=== PATIENT | male | born 1970 | race Caucasian/White ===

== ENCOUNTER 2016-12-06 06:20 | Inpatient (IN) | payer OTHER ==
[2016-12-06] MEDS: HYDROmorphone 1 mg/mL 1mL Syr IVP PRN ×3 (08:07→20:53)
[2016-12-06] MEDS: Sodium Chloride 0.9% 1,000 ML IV SCH ×2 (08:10→23:36)
[2016-12-06 08:21] LABS: HEMATOCRIT 34.4 % (39.0-49.0); HEMOGLOBIN 11.7 gm/dL (13.2-17.3); MEAN CORPUSCULAR HEMOGLOBIN 27.9 pg (26.0-30.0); MEAN PLATELET VOLUME 7.2 fl; PLATELET COUNT 486 Th/cmm (150-400); RED BLOOD COUNT 4.19 Mil/cmm (4.30-5.70); RED CELL DISTRIBUTION WIDTH 13.2 % (11.5-20.0)
[2016-12-06 08:28] LABS: WHITE BLOOD COUNT 23.5 Th/cmm (4.8-10.8)
[2016-12-06 08:44] LABS: ALB/GLOB RATIO 0.7 (1.0-1.8); ALKALINE PHOSPHATASE 68 U/L (34-104); ANION GAP 9.4 (7.0-16.0); BILIRUBIN,TOTAL 0.6 mg/dL (0.3-1.0); BUN - UREA NITROGEN 8 mg/dL (7-25); CALCIUM SERUM 8.3 mg/dL (8.6-10.3); CHLORIDE 99 mEq/L (98-107); CREATININE - SERUM 0.4 mg/dL (0.7-1.3); GLUCOSE 121 mg/dL (70-105); POTASSIUM SERUM 3.4 mEq/L (3.5-5.1); SGOT 21 U/L (13-39); SGPT/ALT 18 U/L (7-52); SODIUM SERUM 134 mEq/L (136-145)
[2016-12-06 08:45] LABS: BAND NEUTROPHILE 7 % (0-10); NEUTROPHILS 75 % (40-80); TOTAL CELLS COUNTED 100
[2016-12-06] MEDS ORDERED: Vancomycin HCl 1.5 GM in Sodium Chloride 0.9% 500 ML IV ONE (08:45)
[2016-12-06 08:46] LABS: PLATELET ESTIMATE ADEQUATE (NORMAL)
--- NOTE | 2016-12-06 09:49 | History & Physical ---
ADMIT DATE: 12/06/2016 CHIEF COMPLAINT: Abscess in thorax. HISTORY OF PRESENT ILLNESS: This is the case of a 45-year-old male who went to Emergency Room, [facility] secondary to chest pain, neck, and right shoulder. The patient referred that he has an abscess that was draining two months ago and suddenly started to have the same symptoms, the reason why he came to Emergency Room for evaluation and treatment. The diagnosis was abscess. The patient was transferred to this hospital to continue treatment. PAST MEDICAL HISTORY: The patient has past medical history of the septic arthritis and chest wall cellulitis. SOCIAL HISTORY: The patient lives at home with family members. He denies use of drugs or smoking. He drinks occasionally. ALLERGIES: No known allergies. PAST SURGICAL HISTORY: Abscess drainage. MEDICATIONS: None. REVIEW OF SYSTEMS: LUNGS: No shortness of breath. CHEST WALL: The patient referred pain in chest, shoulders, and especially in the area where the abscess is. ABDOMEN: Unremarkable. EXTREMITIES: Unremarkable. PHYSICAL EXAMINATION: GENERAL: Does reveal a fairly nourished and developed male, awake, and alert, in acute distress secondary to pain. HEENT: Head is normocephalic and atraumatic. Eyes: Pupils reactive to light. Nose: No evidence of nasal obstruction. Ears: No evidence of any discharge. Mouth: Fairly keep. LUNGS: Bilateral air entry. CHEST: There is an open wound between first and second ribs close to the sternum . HEART: Regular rate and rhythm. ABDOMEN: Soft and nontender. Bowel sound is present. EXTREMITIES: No edema. NEUROLOGICAL: The patient is awake and alert in some acute distress. Nerves 2-12 grossly intact. IMPRESSION: Cellulitis and abscess. PLAN: 1. The patient will be admitted in the medical/surgical floor. 2. IV normal saline. 3. Vancomycin and Zosyn. 4. Dilaudid for pain control. 5. CBC, CMP. JOB# [id number]
--- NOTE | 2016-12-06 10:11 | History & Physical ---
ADMIT DATE: 12/06/2016 SURGICAL CONSULTATION. REFERRING PHYSICIAN: Dr. Cedillo. REASON FOR CONSULTATION: Infection, right sternoclavicular joint. Thank you for referring this patient to me. HISTORY OF PRESENT ILLNESS: This is a 46-year-old male who was transferred from [facility] this morning following a visit there in the Emergency Room. The notes from [facility] are read and it appears that the patient had been to [facility] about 2-3 months ago with essentially the same complaint. He had drainage of the infection at that site and underwent antibiotic treatment. Apparently, this recurred about a week ago for which he has sought treatment at [facility]. The patient underwent incision and drainage of the abscess and a CT scan report from there showed still presence of abscess in the sternoclavicular joint. The WBC repeated at this hospital showed count of 23,500 and hemoglobin 11.7. The bands 7%. Chemistry: Glucose is 121. PHYSICAL EXAMINATION: GENERAL: The patient is not very informative and although awake and alert, seems to be very diffident in giving any information. Significant finding is an abscess that was drained at [facility] with iodoform back in the right sternoclavicular joint. There is tenderness present. There is surrounding cellulitis and minimal drainage. IMPRESSION: 1. Abscess, right sternoclavicular joint. 2. Cellulitis. RECOMMENDATIONS: Infectious Disease creative consultant will need to get involved as well as orthopedic consultation. I will defer to both consultants for their opinions on further treatment on this patient. Thank you for this consultation. We will follow as needed. [facility]# [id number]
[2016-12-06 11:10] LABS: AMPHETAMINE URINE POSITIVE (NEGATIVE); BARBITURATES URINE NEGATIVE (NEGATIVE); METHADONE URINE NEGATIVE (NEGATIVE)
--- NOTE | 2016-12-06 18:37 | Consultation ---
Consult Note - Consult Note Service Date: 12/06/16 Consult Note: PHYSICIAN Consultation Note: Date of Admission: 12/06/16 Purpose of Consultation: Chief Complaint:Patient CIRILO TARIQ was admitted to location Medical/ Surgical Unit I with CHEST WALL CELLULITIS. History of Present Illness: 46 y male presented to the ER for draining abscess in right upper chest at the junction of sterno clavicular joint for 2 months. It was associated with fevers. on initial evaluation, his temperature was 98.2 degree F and WBC count was 23K. Sepsis w/u was performed and ID consult was called for antibiotic management. Past Medical History: chest wall cellulitis and abscess. Diagnoses CUTANEOUS ABSCESS, UNSPECIFIED (12/06/16) CELLULITIS OF TRUNK, UNSPECIFIED (12/06/16) ARTHRITIS DUE TO OTHER BACTERIA, RIGHT SHOULDER (12/06/16) Allergies Allergy/AdvReac Type Severity Reaction Status Date / Time No Known Allergies Allergy Verified 12/06/16 06:47 Vital Signs Temp 98.2 F 12/06/16 15:59 Pulse 95 12/06/16 15:59 Resp 18 12/06/16 15:59 BP 144/88 12/06/16 15:59 Pulse Ox 96 12/06/16 15:59 Intake & Output 12/05/16 12/06/16 12/06/16 18:59 06:59 18:59 Intake Total 50 Balance 50 Weight (lbs) 75.75 kg Intake: Intake, IV Amount 50 Piperacillin Sodium/ 50 Tazobact 3.375 gm In Sodium Chloride 0.9% 50 ml @ 100 mls/hr IV Q8HR [facility] Rx#:[id number] Laboratory Results - last 24 hr 12/06/16 12/06/16 12/06/16 08:06 08:06 10:30 WBC 23.5 H* RBC 4.19 L Hgb 11.7 L Hct 34.4 L MCV 82.0 MCH 27.9 MCHC Differential 34.0 RDW 13.2 Plt Count 486 H MPV 7.2 Band Neutrophils % 7 Neutrophils (Manual) 75 Lymphocytes 7 L Monocytes 7 Atypical Lymphocytes 4 Platelet Estimate ADEQUATE Sodium 134 L Potassium 3.4 L Chloride 99 Carbon Dioxide 29.0 Anion Gap 9.4 BUN 8 Creatinine 0.4 L Est GFR ( Amer) > 60.0 Est GFR (Non-Af Amer) > 60.0 BUN/Creatinine Ratio 20.0 Glucose 121 H Calcium 8.3 L Total Bilirubin 0.6 AST 21 ALT 18 Alkaline Phosphatase 68 Total Protein 5.8 L Albumin 2.4 L Globulin 3.4 Albumin/Globulin Ratio 0.7 L Urine Opiates Screen POSITIVE H Urine Methadone Screen NEGATIVE Ur Barbiturates Screen NEGATIVE Ur Tricyclics Screen NEGATIVE Ur Phencyclidine Scrn NEGATIVE Amphetamines Screen POSITIVE H U Methamphetamines Scrn NEGATIVE U Benzodiazepines Scrn NEGATIVE U Cocaine Metab Screen NEGATIVE U Cannabinoids Screen NEGATIVE Current Medications Generic Name Dose Route Start Last Admin Trade Name Freq PRN Reason Stop Dose Admin Hydromorphone HCl 1 mg 12/06/16 07:40 12/06/16 13:53 Dilaudid IVP 02/04/17 07:39 1 mg Q6H PRN Administration PAIN Piperacillin Sod/Tazobactam 50 mls @ 100 mls/hr 12/06/16 08:00 12/06/16 14:43 Sod 3.375 gm/ Sodium Chloride IV 02/04/17 07:59 100 mls/hr Q8HR [facility] Administration Sodium Chloride 1,000 mls @ 100 mls/hr 12/06/16 07:42 12/06/16 08:10 Nacl 0.9% IV 02/04/17 07:41 100 mls/hr .Q10H [facility] Administration Miscellaneous 1 ea 12/06/16 07:36 Vancomycin Iv Per Pharmacy 02/04/17 07:35 PRN PRN PROTOCOL Review of Systems: A 12 point ROS was reviewed with the pertinent positive and negatives noted in the HPI. Social History Smoking Status Never smoker Drug Use No Alcohol Use Yes: DAILY Family Medical History Family Medical History Start: 12/06/16 06: 43 Freq: ONCE Status: Active Document 12/06/16 14:53 [email or web address] (Rec: 12/06/16 14:56 [email or web address] [id number]) Family Medical History Father Name: TALISHA KELLEY Age 75 Ethnicity Living Status Still Living Hx Family Cancer No Hx Family Coronary Artery Disease No Hx Family Congestive Heart Failure No Hx Family Hypertension No Hx Family Stroke No Hx Family Diabetes No Hx Family Seizures No Hx Family Dementia No Hx Family AIDS No Hx Family HIV No Hx Family COPD No Hx Family Hepatitis No Hx Family Psychiatric Problems No Hx Family Tuberculosis No Physical Exam: General: Well nourished, well developed. No Acute Distress HEENT: EOMI Bilaterally, PERRLA Bilaterally, Head is normocephalic, atraumatic on inspection. Cardio: +S1/S2 Auscultated, RRR, no murmurs/rubs/gallops noted Respiratory: Clear to Auscultate Bilaterally Abdominal: Soft, Nondistended, Nontender to palpation x 4 quadrants Genital/Urinary: Extremities: No Edema noted in the lower extremities Neurological: Cranial Nerves II-XII intact bilaterally, Gait Steady, No Focal Deficits noted. Alert and Oriented x3, Assessment/Plan: 1. Sepsis. 2. Chest wall cellulitis, suspect osteomyelitis and septic arthritis. Will contiue vanco IV and Zosyn. check 3 phawse bone scan. F/u sepsis w/u. echo. Signed, Juan Renteria M.D. [id number]/06/[id number]
--- NOTE | 2016-12-06 22:07 | Admit Criteria Form ---
Admit Criteria Forms - Admit Criteria Diagnosis: CELLULITIS Clinical Indications for Admission to Inpatient Care (Place 'X' for any and all applicable criteria): Admission is indicated for ANY ONE of the following(1)(2)(3)(4)(5): [ ]I. Limb-threatening infection [ ]II. High-risk comorbid condition as indicated by ANY ONE of the following: [ ]a) Uncontrolled diabetes (eg, HbA1c greater than 10% (0.1)) [ ]b) Cirrhosis [ ]c) Neutropenia [ ]d) Asplenia [ ]e) Immunosuppression [ ]f) Symptomatic heart failure [ ]III. Failure of outpatient therapy as indicated by ALL of the following: [ ]a) Progression or no improvement after adequate trial (minimum of 48 hours, with longer period for stable lower extremity infection) [ ]b) Adequate antibiotic regimen as indicated by use of ANY ONE of the following: [ ]i) First-generation cephalosporin (e.g., cephalexin) [ ]ii) Antistaphylococcal penicillin (e.g., dicloxacillin) [ ]iii) Penicillin-allergic patient regimen (clindamycin, extended-spectrum fluoroquinolone, or doxycycline) [ ]iv) Resistant organism (eg, methicillin-resistant Staphylococcus aureus) regimen (6) [ ]c) Outpatient intravenous therapy regimen is not appropriate due to ANY ONE of the following. (7)(8)(9)(10): [ ]i) It was tried and was not successful (eg, progression of infection). [ ]ii) It is not available or cannot be arranged in a clinically appropriate time frame (e.g., the next day). [ ]iii) Clinical presentation (eg, acuity of infection, rapidity of progression, confirmed or suspected bacteremia) is judged to require ALL of the following: [ ]1) Immediate initiation of intravenous therapy ( eg, cannot wait for next day) [ ]2) Intensity of patient monitoring and observation (eg, vital sign measurement, checks for infection progression) that cannot be provided at other than inpatient level of care [ ]IV. Mental status changes [ ]V. Bacteremia [ ]. Hemodynamic instability [ ]VII. Suspected necrotizing soft tissue infection (e.g., gas in tissue)(11)( 12) [ ]VIII. Orbital infection (13)(14) [ ]IX. Associated surgical procedure (e.g., abscess drainage, debridement) not amenable to outpatient, emergency department, or observation care [ ]X. Cutaneous gangrene [ ]XI. High fever (temperature greater than 39.5 degrees C (103.1 degrees F) (oral)) not responsive to outpatient, emergency department, or observation care therapy [X]XIII. Inpatient admission required rather than observation care (Also use Cellulitis: Observation Care as appropriate) because of ANY ONE of the following : [ ]a) Periorbital or perineal infection that is severe or worsening [ ]b) Severe pain requiring acute inpatient management [ ]c) IV fluid to replace significant ongoing (e.g., for over 24 hours) losses (greater than 3L/m2 per day) [ ]d) Compartment syndrome monitoring (17) [ ]e) Strict or protective (eg, laminar flow) isolation [ ]f) Urgent debridement or skin grafting [ ]g) Bone or joint debridement [ ]h) Immediate inpatient surgery [X]i) Other condition, treatment or monitoring requiring inpatient admission Extended stay beyond goal length of stay may be needed for (1)(18): [ ]a) Necrotizing soft tissue infection or fasciitis [ ]b) Gram-negative infection [ ]c) Methicillin-resistant Staphylococcal aureus (MRSA) infection [ ]d) Peripheral venous insufficiency with cellulitis [ ]e) Extensive edema [ ]f) Sepsis or continued Hemodynamic instability [ ]g) Continued high fever or mental status change [ ]h) Bacteremia [ ]i) Active serious comorbid conditions ( eg, heart failure, renal insufficiency) The original [facility] content created by [facility] (formerly [facility])[3] [employer] has been revised. The portions of the content which have been revised are identified through the use of italic text or in bold, and [facility] has neither reviewed nor approved the modified material. All other unmodified content is copyright [facility] Please see references footnoted in the original [facility] edition 2016 Admit Criteria Met?: Yes
[2016-12-07] MEDS: HYDROmorphone 1 mg/mL 1mL Syr IVP PRN ×4 (03:16→21:57)
[2016-12-07 06:27] LABS: HEMATOCRIT 33.3 % (39.0-49.0); HEMOGLOBIN 11.4 gm/dL (13.2-17.3); MEAN CELL VOLUME 81.7 fl (80-99); MEAN CORPUSCULAR HEMOGLOBIN 27.9 pg (26.0-30.0); MEAN CORPUSCULAR HGB CONC 34.1 pg (28.0-36.0); MEAN PLATELET VOLUME 7.4 fl; PLATELET COUNT 540 Th/cmm (150-400); RED BLOOD COUNT 4.08 Mil/cmm (4.30-5.70); RED CELL DISTRIBUTION WIDTH 12.7 % (11.5-20.0)
[2016-12-07 06:44] LABS: WHITE BLOOD COUNT 29.7 Th/cmm (4.8-10.8)
[2016-12-07 06:45] LABS: ALB/GLOB RATIO 0.7 (1.0-1.8); ALKALINE PHOSPHATASE 66 U/L (34-104); ANION GAP 10.8 (7.0-16.0); BILIRUBIN,TOTAL 0.8 mg/dL (0.3-1.0); BUN - UREA NITROGEN 10 mg/dL (7-25); CALCIUM SERUM 8.5 mg/dL (8.6-10.3); CARBON DIOXIDE 27.2 mEq/L (21.0-31.0); CHLORIDE 96 mEq/L (98-107); CREATININE - SERUM 0.5 mg/dL (0.7-1.3); GLUCOSE 111 mg/dL (70-105); SGOT 16 U/L (13-39); SGPT/ALT 23 U/L (7-52); SODIUM SERUM 130 mEq/L (136-145)
[2016-12-07 07:05] LABS: NEUTROPHILS 85 % (40-80); PLATELET ESTIMATE INCREASED PLATELETS (NORMAL); TOTAL CELLS COUNTED 100
[2016-12-07 07:06] LABS: PLATELET MORPHOLOGY PLATELET CLUMPS SEEN (NORMAL)
--- NOTE | 2016-12-07 08:37 | General Progress Note ---
Subjective - Review of Systems Service Date: 12/07/16 Subjective: I fell bad Objective - Results Result Diagrams: 12/07/16 05:35 12/07/16 05:35 Recent Labs: Laboratory Last Values WBC 29.7 Th/cmm (4.8-10.8) H* D 12/07/16 05:35 RBC 4.08 Mil/cmm (4.30-5.70) L 12/07/16 05:35 Hgb 11.4 gm/dL (13.2-17.3) L 12/07/16 05:35 Hct 33.3 % (39.0-49.0) L 12/07/16 05:35 MCV 81.7 fl (80-99) 12/07/16 05:35 MCH 27.9 pg (26.0-30.0) 12/07/16 05:35 MCHC Differential 34.1 pg (28.0-36.0) 12/07/16 05:35 RDW 12.7 % (11.5-20.0) 12/07/16 05:35 Plt Count 540 Th/cmm (150-400) H 12/07/16 05:35 MPV 7.4 fl 12/07/16 05:35 Band Neutrophils % 7 % (0-10) 12/06/16 08:06 Neutrophils (Manual) 85 % (40-80) H 12/07/16 05:35 Lymphocytes 6 % (20-50) L 12/07/16 05:35 Monocytes 9 % (2-10) 12/07/16 05:35 Atypical Lymphocytes 4 % 12/06/16 08:06 Platelet Estimate INCREASED PLATELETS (NORMAL) 12/07/16 05:35 Platelet Morphology PLATELET CLUMPS SEEN (NORMAL) 12/07/16 05:35 ESR 70 mm/hr (0-20) H 12/06/16 18:59 Sodium 130 mEq/L (136-145) L 12/07/16 05:35 Potassium 4.0 mEq/L (3.5-5.1) 12/07/16 05:35 Chloride 96 mEq/L (98-107) L 12/07/16 05:35 Carbon Dioxide 27.2 mEq/L (21.0-31.0) 12/07/16 05:35 Anion Gap 10.8 (7.0-16.0) 12/07/16 05:35 BUN 10 mg/dL (7-25) 12/07/16 05:35 Creatinine 0.5 mg/dL (0.7-1.3) L 12/07/16 05:35 Est GFR ( Amer) > 60.0 ml/min (>90) 12/07/16 05:35 Est GFR (Non-Af Amer) > 60.0 ml/min 12/07/16 05:35 BUN/Creatinine Ratio 20.0 12/07/16 05:35 Glucose 111 mg/dL (70-105) H 12/07/16 05:35 Calcium 8.5 mg/dL (8.6-10.3) L 12/07/16 05:35 Total Bilirubin 0.8 mg/dL (0.3-1.0) 12/07/16 05:35 AST 16 U/L (13-39) 12/07/16 05:35 ALT 23 U/L (7-52) 12/07/16 05:35 Alkaline Phosphatase 66 U/L (34-104) 12/07/16 05:35 C-Reactive Protein 30.5 mg/dL (0.0-0.9) H 12/06/16 18:59 Total Protein 6.0 gm/dL (6.0-8.3) 12/07/16 05:35 Albumin 2.4 gm/dL (4.2-5.5) L 12/07/16 05:35 Globulin 3.6 gm/dL 12/07/16 05:35 Albumin/Globulin Ratio 0.7 (1.0-1.8) L 12/07/16 05:35 Urine Opiates Screen POSITIVE (NEGATIVE) H 12/06/16 10:30 Urine Methadone Screen NEGATIVE (NEGATIVE) 12/06/16 10:30 Ur Barbiturates Screen NEGATIVE (NEGATIVE) 12/06/16 10:30 Ur Tricyclics Screen NEGATIVE (NEGATIVE) 12/06/16 10:30 Ur Phencyclidine Scrn NEGATIVE (NEGATIVE) 12/06/16 10:30 Amphetamines Screen POSITIVE (NEGATIVE) H 12/06/16 10:30 U Methamphetamines Scrn NEGATIVE (NEGATIVE) 12/06/16 10:30 U Benzodiazepines Scrn NEGATIVE (NEGATIVE) 12/06/16 10:30 U Cocaine Metab Screen NEGATIVE (NEGATIVE) 12/06/16 10:30 U Cannabinoids Screen NEGATIVE (NEGATIVE) 12/06/16 10:30 - Physical Exam Vitals and I&O: Vital Signs Temp 98.8 F 12/07/16 07:50 Pulse 80 12/07/16 07:50 Resp 20 12/07/16 07:50 BP 141/93 12/07/16 07:50 Pulse Ox 98 12/07/16 07:50 Intake & Output 12/06/16 12/07/16 12/07/16 18:59 06:59 18:59 Intake Total 1100 250 Balance 1100 250 Intake: Intake, IV Amount 1100 50 Piperacillin Sodium/ 100 50 Tazobact 3.375 gm In Sodium Chloride 0.9% 50 ml @ 100 mls/hr IV Q8HR COUNTS INCLUDE 234 BEDS AT THE [facility] Rx#:[id number] Sodium Chloride 0.9% 1, 1000 000 ml @ 100 mls/hr IV . Q10H [facility] Rx#:[id number] Oral 200 Other: # Voids 3 Active Medications: Current Medications Acetaminophen (Tylenol) 650 mg PO Q6H PRN PRN Reason: Fever > 101 Stop: 02/04/17 19:52 Last Admin: 12/07/16 05:28 Dose: 650 mg Hydromorphone HCl (Dilaudid) 1 mg IVP Q6H PRN PRN Reason: PAIN Stop: 02/04/17 07:39 Last Admin: 12/07/16 03:16 Dose: 1 mg Piperacillin Sod/Tazobactam (Sod 3.375 gm/ Sodium Chloride) 50 mls @ 100 mls/ hr IV Q8HR [facility] Stop: 02/04/17 07:59 Last Admin: 12/07/16 05:24 Dose: 100 mls/hr Sodium Chloride (Nacl 0.9%) 1,000 mls @ 100 mls/hr IV .Q10H [facility] Stop: 02/04/17 07:41 Last Admin: 12/06/16 23:36 Dose: 100 mls/hr Vancomycin HCl 1.75 gm/ Sodium (Chloride) 500 mls @ 250 mls/hr IV Q8H [facility] Stop: 02/05/17 08:59 Miscellaneous (Vancomycin Iv Per Pharmacy) 1 ea [facility] PRN PRN PRN Reason: PROTOCOL Stop: 02/04/17 07:35 General: Alert, Oriented x3, Cooperative, Mild distress HEENT: Atraumatic Neck: Supple Cardiovascular: Regular rate Lungs: Clear to auscultation Abdomen: Bowel sounds, Soft Extremities: Other (No edema) Neurological: Normal gait Skin: Other (There is an chest abcess) Psych/Mental Status: Mental status NL Assessment/Plan - Assessment Assessment: Patient is awake, calm in some distress secondary to pain and fever. Today WBC is 29.7. Dx: cellulites and abscess - Plan Plan: Patient in [facility], CXR order. Already seen by ID. will continue to monitor.
[2016-12-07] MEDS ORDERED: Vancomycin HCl 1.5 GM in Sodium Chloride 0.9% 500 ML IV SCH (09:00)
[2016-12-07] MEDS: Vancomycin HCl 1.75 GM in Sodium Chloride 0.9% 500 ML IV SCH ×2 (09:39→17:13)
--- NOTE | 2016-12-07 09:39 | Diagnostic Imaging Report ---
CHEST X-RAY: AP view INDICATION: pain COMPARISON: None FINDINGS: Left lower lung zone thickened linear lung markings are noted. No focal consolidation or effusions. Heart size normal. Osseous structures are intact. IMPRESSION: Left lower lung zone thickened linear lung markings. Findings may be due to atelectasis versus scarring. Acute infiltrate is less likely, however, follow-up is recommended to ensure resolution of this finding.
--- NOTE | 2016-12-07 12:41 | General Progress Note ---
Subjective - Review of Systems Service Date: 12/07/16 Events since last encounter: drug screen positive will need Ortho consult on this patient as I am not qualified for this condition Objective - Results Result Diagrams: 12/07/16 05:35 12/07/16 05:35 Recent Labs: Laboratory Last Values WBC 29.7 Th/cmm (4.8-10.8) H* D 12/07/16 05:35 RBC 4.08 Mil/cmm (4.30-5.70) L 12/07/16 05:35 Hgb 11.4 gm/dL (13.2-17.3) L 12/07/16 05:35 Hct 33.3 % (39.0-49.0) L 12/07/16 05:35 MCV 81.7 fl (80-99) 12/07/16 05:35 MCH 27.9 pg (26.0-30.0) 12/07/16 05:35 MCHC Differential 34.1 pg (28.0-36.0) 12/07/16 05:35 RDW 12.7 % (11.5-20.0) 12/07/16 05:35 Plt Count 540 Th/cmm (150-400) H 12/07/16 05:35 MPV 7.4 fl 12/07/16 05:35 Band Neutrophils % 7 % (0-10) 12/06/16 08:06 Neutrophils (Manual) 85 % (40-80) H 12/07/16 05:35 Lymphocytes 6 % (20-50) L 12/07/16 05:35 Monocytes 9 % (2-10) 12/07/16 05:35 Atypical Lymphocytes 4 % 12/06/16 08:06 Platelet Estimate INCREASED PLATELETS (NORMAL) 12/07/16 05:35 Platelet Morphology PLATELET CLUMPS SEEN (NORMAL) 12/07/16 05:35 ESR 70 mm/hr (0-20) H 12/06/16 18:59 Sodium 130 mEq/L (136-145) L 12/07/16 05:35 Potassium 4.0 mEq/L (3.5-5.1) 12/07/16 05:35 Chloride 96 mEq/L (98-107) L 12/07/16 05:35 Carbon Dioxide 27.2 mEq/L (21.0-31.0) 12/07/16 05:35 Anion Gap 10.8 (7.0-16.0) 12/07/16 05:35 BUN 10 mg/dL (7-25) 12/07/16 05:35 Creatinine 0.5 mg/dL (0.7-1.3) L 12/07/16 05:35 Est GFR ( Amer) > 60.0 ml/min (>90) 12/07/16 05:35 Est GFR (Non-Af Amer) > 60.0 ml/min 12/07/16 05:35 BUN/Creatinine Ratio 20.0 12/07/16 05:35 Glucose 111 mg/dL (70-105) H 12/07/16 05:35 Calcium 8.5 mg/dL (8.6-10.3) L 12/07/16 05:35 Total Bilirubin 0.8 mg/dL (0.3-1.0) 12/07/16 05:35 AST 16 U/L (13-39) 12/07/16 05:35 ALT 23 U/L (7-52) 12/07/16 05:35 Alkaline Phosphatase 66 U/L (34-104) 12/07/16 05:35 C-Reactive Protein 30.5 mg/dL (0.0-0.9) H 12/06/16 18:59 Total Protein 6.0 gm/dL (6.0-8.3) 12/07/16 05:35 Albumin 2.4 gm/dL (4.2-5.5) L 12/07/16 05:35 Globulin 3.6 gm/dL 12/07/16 05:35 Albumin/Globulin Ratio 0.7 (1.0-1.8) L 12/07/16 05:35 Urine Opiates Screen POSITIVE (NEGATIVE) H 12/06/16 10:30 Urine Methadone Screen NEGATIVE (NEGATIVE) 12/06/16 10:30 Ur Barbiturates Screen NEGATIVE (NEGATIVE) 12/06/16 10:30 Ur Tricyclics Screen NEGATIVE (NEGATIVE) 12/06/16 10:30 Ur Phencyclidine Scrn NEGATIVE (NEGATIVE) 12/06/16 10:30 Amphetamines Screen POSITIVE (NEGATIVE) H 12/06/16 10:30 U Methamphetamines Scrn NEGATIVE (NEGATIVE) 12/06/16 10:30 U Benzodiazepines Scrn NEGATIVE (NEGATIVE) 12/06/16 10:30 U Cocaine Metab Screen NEGATIVE (NEGATIVE) 12/06/16 10:30 U Cannabinoids Screen NEGATIVE (NEGATIVE) 12/06/16 10:30 - Physical Exam Vitals and I&O: Vital Signs Temp 98.6 F 12/07/16 12:17 Pulse 85 12/07/16 12:17 Resp 19 12/07/16 12:17 BP 133/63 12/07/16 12:17 Pulse Ox 96 12/07/16 12:17 Intake & Output 12/06/16 12/07/16 12/07/16 18:59 06:59 18:59 Intake Total 1100 250 450 Balance 1100 250 450 Intake: Intake, IV Amount 1100 50 Piperacillin Sodium/ 100 50 Tazobact 3.375 gm In Sodium Chloride 0.9% 50 ml @ 100 mls/hr IV Q8HR [facility] Rx#:[id number] Sodium Chloride 0.9% 1, 1000 000 ml @ 100 mls/hr IV . Q10H [facility] Rx#:[id number] Oral 200 450 Other: # Voids 3 Active Medications: Current Medications Acetaminophen (Tylenol) 650 mg PO Q6H PRN PRN Reason: Fever > 101 Stop: 02/04/17 19:52 Last Admin: 12/07/16 05:28 Dose: 650 mg Hydromorphone HCl (Dilaudid) 1 mg IVP Q6H PRN PRN Reason: PAIN Stop: 02/04/17 07:39 Last Admin: 12/07/16 09:33 Dose: 1 mg Piperacillin Sod/Tazobactam (Sod 3.375 gm/ Sodium Chloride) 50 mls @ 100 mls/ hr IV Q8HR [facility] Stop: 02/04/17 07:59 Last Admin: 12/07/16 05:24 Dose: 100 mls/hr Sodium Chloride (Nacl 0.9%) 1,000 mls @ 100 mls/hr IV .Q10H [facility] Stop: 02/04/17 07:41 Last Admin: 12/06/16 23:36 Dose: 100 mls/hr Vancomycin HCl 1.75 gm/ Sodium (Chloride) 500 mls @ 250 mls/hr IV Q8H [facility] Stop: 02/05/17 08:59 Last Admin: 12/07/16 09:39 Dose: 250 mls/hr Miscellaneous (Vancomycin Iv Per Pharmacy) 1 shana WEBSTER PRN PRN PRN Reason: PROTOCOL Stop: 02/04/17 07:35
[2016-12-07] MEDS: Sodium Chloride 0.9% 1,000 ML IV SCH (12:51)
[2016-12-07 21:00] VITALS: BP 155/88
[2016-12-08] MEDS: Vancomycin HCl 1.75 GM in Sodium Chloride 0.9% 500 ML IV SCH ×3 (00:34→17:11)
[2016-12-08] MEDS: HYDROmorphone 1 mg/mL 1mL Syr IVP PRN ×3 (04:02→17:11)
[2016-12-08] MEDS: Sodium Chloride 0.9% 1,000 ML IV SCH (04:56)
[2016-12-08 06:36] LABS: HEMATOCRIT 37.1 % (39.0-49.0); HEMOGLOBIN 12.4 gm/dL (13.2-17.3); MEAN CORPUSCULAR HEMOGLOBIN 27.1 pg (26.0-30.0); MEAN CORPUSCULAR HGB CONC 33.5 pg (28.0-36.0); MEAN PLATELET VOLUME 7.4 fl; PLATELET COUNT 606 Th/cmm (150-400); RED BLOOD COUNT 4.57 Mil/cmm (4.30-5.70); RED CELL DISTRIBUTION WIDTH 12.9 % (11.5-20.0)
[2016-12-08 06:46] LABS: ALB/GLOB RATIO 0.6 (1.0-1.8); ALKALINE PHOSPHATASE 71 U/L (34-104); ANION GAP 10.8 (7.0-16.0); BILIRUBIN,TOTAL 0.8 mg/dL (0.3-1.0); BUN - UREA NITROGEN 12 mg/dL (7-25); CALCIUM SERUM 8.8 mg/dL (8.6-10.3); CARBON DIOXIDE 27.1 mEq/L (21.0-31.0); CHLORIDE 95 mEq/L (98-107); CREATININE - SERUM 0.5 mg/dL (0.7-1.3); GLUCOSE 146 mg/dL (70-105); POTASSIUM SERUM 3.9 mEq/L (3.5-5.1); SGOT 13 U/L (13-39); SGPT/ALT 20 U/L (7-52); SODIUM SERUM 129 mEq/L (136-145)
[2016-12-08 06:52] LABS: WHITE BLOOD COUNT 25.1 Th/cmm (4.8-10.8)
[2016-12-08 07:17] LABS: BAND NEUTROPHILE 2 % (0-10); NEUTROPHILS 79 % (40-80); TOTAL CELLS COUNTED 100
[2016-12-08 07:18] LABS: PLATELET ESTIMATE INCREASED PLATELETS (NORMAL); PLATELET MORPHOLOGY GIANT PLATELETS SEEN (NORMAL)
--- NOTE | 2016-12-08 08:38 | Diagnostic Imaging Report ---
Nuclear medicine 3 phase bone scan History: Pain rule out osteomyelitis of the right clavicle Comparison: Chest x-ray 12/07/2016 Technique/procedure: 22.6 minutes of technetium labeled MDP was administered and flow, blood pool , and delayed scintigraphic images of the chest including the clavicles were obtained. Flow images demonstrate no significant focal increased uptake. Blood pole images demonstrate mild uptake along the bilateral shoulder joints. Delayed images demonstrate increased asymmetric uptake along the right sternoclavicular joint. IMPRESSION: Increased asymmetric uptake on the delayed images along the right sternoclavicular joint. This finding is nonspecific and may be due to degenerative etiologies, however, given patient's clinical findings, osteomyelitis cannot be completely excluded. Please correlate with clinical findings. MRI would provide additional detail and assessment.
--- NOTE | 2016-12-08 08:47 | General Progress Note ---
Subjective - Review of Systems Service Date: 12/08/16 Subjective: I fell better Objective - Results Result Diagrams: 12/08/16 05:45 12/08/16 05:45 Recent Labs: Laboratory Last Values WBC 25.1 Th/cmm (4.8-10.8) H* 12/08/16 05:45 RBC 4.57 Mil/cmm (4.30-5.70) 12/08/16 05:45 Hgb 12.4 gm/dL (13.2-17.3) L 12/08/16 05:45 Hct 37.1 % (39.0-49.0) L D 12/08/16 05:45 MCV 81.0 fl (80-99) 12/08/16 05:45 MCH 27.1 pg (26.0-30.0) 12/08/16 05:45 MCHC Differential 33.5 pg (28.0-36.0) 12/08/16 05:45 RDW 12.9 % (11.5-20.0) 12/08/16 05:45 Plt Count 606 Th/cmm (150-400) H 12/08/16 05:45 MPV 7.4 fl 12/08/16 05:45 Band Neutrophils % 2 % (0-10) 12/08/16 05:45 Neutrophils (Manual) 79 % (40-80) 12/08/16 05:45 Lymphocytes 9 % (20-50) L 12/08/16 05:45 Monocytes 10 % (2-10) 12/08/16 05:45 Atypical Lymphocytes 4 % 12/06/16 08:06 Platelet Estimate INCREASED PLATELETS (NORMAL) 12/08/16 05:45 Platelet Morphology GIANT PLATELETS SEEN (NORMAL) 12/08/16 05:45 ESR 70 mm/hr (0-20) H 12/06/16 18:59 Sodium 129 mEq/L (136-145) L 12/08/16 05:45 Potassium 3.9 mEq/L (3.5-5.1) 12/08/16 05:45 Chloride 95 mEq/L (98-107) L 12/08/16 05:45 Carbon Dioxide 27.1 mEq/L (21.0-31.0) 12/08/16 05:45 Anion Gap 10.8 (7.0-16.0) 12/08/16 05:45 BUN 12 mg/dL (7-25) 12/08/16 05:45 Creatinine 0.5 mg/dL (0.7-1.3) L 12/08/16 05:45 Est GFR ( Amer) > 60.0 ml/min (>90) 12/08/16 05:45 Est GFR (Non-Af Amer) > 60.0 ml/min 12/08/16 05:45 BUN/Creatinine Ratio 24.0 12/08/16 05:45 Glucose 146 mg/dL (70-105) H 12/08/16 05:45 Calcium 8.8 mg/dL (8.6-10.3) 12/08/16 05:45 Total Bilirubin 0.8 mg/dL (0.3-1.0) 12/08/16 05:45 AST 13 U/L (13-39) 12/08/16 05:45 ALT 20 U/L (7-52) 12/08/16 05:45 Alkaline Phosphatase 71 U/L (34-104) 12/08/16 05:45 C-Reactive Protein 30.5 mg/dL (0.0-0.9) H 12/06/16 18:59 Total Protein 6.7 gm/dL (6.0-8.3) 12/08/16 05:45 Albumin 2.5 gm/dL (4.2-5.5) L 12/08/16 05:45 Globulin 4.2 gm/dL 12/08/16 05:45 Albumin/Globulin Ratio 0.6 (1.0-1.8) L 12/08/16 05:45 Urine Opiates Screen POSITIVE (NEGATIVE) H 12/06/16 10:30 Urine Methadone Screen NEGATIVE (NEGATIVE) 12/06/16 10:30 Ur Barbiturates Screen NEGATIVE (NEGATIVE) 12/06/16 10:30 Ur Tricyclics Screen NEGATIVE (NEGATIVE) 12/06/16 10:30 Ur Phencyclidine Scrn NEGATIVE (NEGATIVE) 12/06/16 10:30 Amphetamines Screen POSITIVE (NEGATIVE) H 12/06/16 10:30 U Methamphetamines Scrn NEGATIVE (NEGATIVE) 12/06/16 10:30 U Benzodiazepines Scrn NEGATIVE (NEGATIVE) 12/06/16 10:30 U Cocaine Metab Screen NEGATIVE (NEGATIVE) 12/06/16 10:30 U Cannabinoids Screen NEGATIVE (NEGATIVE) 12/06/16 10:30 - Physical Exam Vitals and I&O: Vital Signs Temp 98.1 F 12/08/16 08:06 Pulse 83 12/08/16 08:06 Resp 17 12/08/16 08:06 BP 133/77 12/08/16 08:06 Pulse Ox 100 12/08/16 08:06 Intake & Output 12/07/16 12/08/16 12/08/16 18:59 06:59 18:59 Intake Total 1500 2530 Output Total 1200 Balance 1500 1330 Intake: Intake, IV Amount 1050 2050 Piperacillin Sodium/ 50 50 Tazobact 3.375 gm In Sodium Chloride 0.9% 50 ml @ 100 mls/hr IV Q8HR [facility] Rx#:[id number] Sodium Chloride 0.9% 1, 1000 1000 000 ml @ 100 mls/hr IV . Q10H [facility] Rx#:[id number] Vancomycin HCl 1.75 gm In 1000 Sodium Chloride 0.9% 500 ml @ 250 mls/hr IV Q8H [facility] Rx#:[id number] Oral 450 480 Output: Urine 1200 Other: # Bowel Movements 1 Stool Characteristics Soft Active Medications: Current Medications Acetaminophen (Tylenol) 650 mg PO Q6H PRN PRN Reason: Fever > 101 Stop: 02/04/17 19:52 Last Admin: 12/08/16 02:56 Dose: 650 mg Aspirin (Aspirin) 325 mg PO DAILY [facility] Stop: 02/06/17 08:59 Diclofenac Sodium (Voltaren) 75 mg PO BID [facility] Stop: 02/06/17 08:59 Hydromorphone HCl (Dilaudid) 1 mg IVP Q6H PRN PRN Reason: PAIN Stop: 02/04/17 07:39 Last Admin: 12/08/16 04:02 Dose: 1 mg Piperacillin Sod/Tazobactam (Sod 3.375 gm/ Sodium Chloride) 50 mls @ 100 mls/ hr IV Q8HR [facility] Stop: 02/04/17 07:59 Last Admin: 12/08/16 04:56 Dose: 100 mls/hr Sodium Chloride (Nacl 0.9%) 1,000 mls @ 100 mls/hr IV .Q10H [facility] Stop: 02/04/17 07:41 Last Admin: 12/08/16 04:56 Dose: 100 mls/hr Vancomycin HCl 1.75 gm/ Sodium (Chloride) 500 mls @ 250 mls/hr IV Q8H [facility] Stop: 02/05/17 08:59 Last Infusion: 12/08/16 02:34 Dose: Infused Miscellaneous (Vancomycin Iv Per Pharmacy) 1 ea [facility] PRN PRN PRN Reason: PROTOCOL Stop: 02/04/17 07:35 General: Alert, Oriented x3, Cooperative, No acute distress HEENT: Atraumatic Neck: Supple Cardiovascular: Regular rate Lungs: Clear to auscultation Abdomen: Bowel sounds, Soft Extremities: Other (No edema) Neurological: Normal gait Skin: Other (Ulcer in chest) Psych/Mental Status: Mental status NL Assessment/Plan - Assessment Assessment: Patient is awake, calm in no distress. Today WBC improved. Dx: Sepsis secondary to cellulites and abscess - Plan Plan: Patient in [facility], MRI is request. will continue to monitor.
--- NOTE | 2016-12-08 09:10 | Infectious Disease Prog Note ---
Infectious Disease Subjective - Review of Systems Service Date: 12/08/16 Subjective: There is no new change, there is no fever. blood culture grew GPC in clusters. Infectious Disease Objective - Results Result Diagrams: 12/08/16 05:45 12/08/16 05:45 Recent Labs: Laboratory Last Values WBC 25.1 Th/cmm (4.8-10.8) H* 12/08/16 05:45 RBC 4.57 Mil/cmm (4.30-5.70) 12/08/16 05:45 Hgb 12.4 gm/dL (13.2-17.3) L 12/08/16 05:45 Hct 37.1 % (39.0-49.0) L D 12/08/16 05:45 MCV 81.0 fl (80-99) 12/08/16 05:45 MCH 27.1 pg (26.0-30.0) 12/08/16 05:45 MCHC Differential 33.5 pg (28.0-36.0) 12/08/16 05:45 RDW 12.9 % (11.5-20.0) 12/08/16 05:45 Plt Count 606 Th/cmm (150-400) H 12/08/16 05:45 MPV 7.4 fl 12/08/16 05:45 Band Neutrophils % 2 % (0-10) 12/08/16 05:45 Neutrophils (Manual) 79 % (40-80) 12/08/16 05:45 Lymphocytes 9 % (20-50) L 12/08/16 05:45 Monocytes 10 % (2-10) 12/08/16 05:45 Atypical Lymphocytes 4 % 12/06/16 08:06 Platelet Estimate INCREASED PLATELETS (NORMAL) 12/08/16 05:45 Platelet Morphology GIANT PLATELETS SEEN (NORMAL) 12/08/16 05:45 ESR 70 mm/hr (0-20) H 12/06/16 18:59 Sodium 129 mEq/L (136-145) L 12/08/16 05:45 Potassium 3.9 mEq/L (3.5-5.1) 12/08/16 05:45 Chloride 95 mEq/L (98-107) L 12/08/16 05:45 Carbon Dioxide 27.1 mEq/L (21.0-31.0) 12/08/16 05:45 Anion Gap 10.8 (7.0-16.0) 12/08/16 05:45 BUN 12 mg/dL (7-25) 12/08/16 05:45 Creatinine 0.5 mg/dL (0.7-1.3) L 12/08/16 05:45 Est GFR ( Amer) > 60.0 ml/min (>90) 12/08/16 05:45 Est GFR (Non-Af Amer) > 60.0 ml/min 12/08/16 05:45 BUN/Creatinine Ratio 24.0 12/08/16 05:45 Glucose 146 mg/dL (70-105) H 12/08/16 05:45 Calcium 8.8 mg/dL (8.6-10.3) 12/08/16 05:45 Total Bilirubin 0.8 mg/dL (0.3-1.0) 12/08/16 05:45 AST 13 U/L (13-39) 12/08/16 05:45 ALT 20 U/L (7-52) 12/08/16 05:45 Alkaline Phosphatase 71 U/L (34-104) 12/08/16 05:45 C-Reactive Protein 30.5 mg/dL (0.0-0.9) H 12/06/16 18:59 Total Protein 6.7 gm/dL (6.0-8.3) 12/08/16 05:45 Albumin 2.5 gm/dL (4.2-5.5) L 12/08/16 05:45 Globulin 4.2 gm/dL 12/08/16 05:45 Albumin/Globulin Ratio 0.6 (1.0-1.8) L 12/08/16 05:45 Vancomycin Trough 15.2 ug/mL (10-20) 12/08/16 08:15 Urine Opiates Screen POSITIVE (NEGATIVE) H 12/06/16 10:30 Urine Methadone Screen NEGATIVE (NEGATIVE) 12/06/16 10:30 Ur Barbiturates Screen NEGATIVE (NEGATIVE) 12/06/16 10:30 Ur Tricyclics Screen NEGATIVE (NEGATIVE) 12/06/16 10:30 Ur Phencyclidine Scrn NEGATIVE (NEGATIVE) 12/06/16 10:30 Amphetamines Screen POSITIVE (NEGATIVE) H 12/06/16 10:30 U Methamphetamines Scrn NEGATIVE (NEGATIVE) 12/06/16 10:30 U Benzodiazepines Scrn NEGATIVE (NEGATIVE) 12/06/16 10:30 U Cocaine Metab Screen NEGATIVE (NEGATIVE) 12/06/16 10:30 U Cannabinoids Screen NEGATIVE (NEGATIVE) 12/06/16 10:30 - Physical Exam Vitals and I&O: Vital Signs Temp 98.1 F 12/08/16 08:06 Pulse 83 12/08/16 08:06 Resp 17 12/08/16 08:06 BP 133/77 12/08/16 08:06 Pulse Ox 100 12/08/16 08:06 Intake & Output 12/07/16 12/08/16 12/08/16 18:59 06:59 18:59 Intake Total 1500 2530 Output Total 1200 Balance 1500 1330 Intake: Intake, IV Amount 1050 2050 Piperacillin Sodium/ 50 50 Tazobact 3.375 gm In Sodium Chloride 0.9% 50 ml @ 100 mls/hr IV Q8HR [facility] Rx#:[id number] Sodium Chloride 0.9% 1, 1000 1000 000 ml @ 100 mls/hr IV . Q10H [facility] Rx#:[id number] Vancomycin HCl 1.75 gm In 1000 Sodium Chloride 0.9% 500 ml @ 250 mls/hr IV Q8H [facility] Rx#:[id number] Oral 450 480 Output: Urine 1200 Other: # Bowel Movements 1 Stool Characteristics Soft Active Medications: Current Medications Acetaminophen (Tylenol) 650 mg PO Q6H PRN PRN Reason: Fever > 101 Stop: 02/04/17 19:52 Last Admin: 12/08/16 02:56 Dose: 650 mg Aspirin (Aspirin) 325 mg PO DAILY [facility] Stop: 02/06/17 08:59 Diclofenac Sodium (Voltaren) 75 mg PO BID [facility] Stop: 02/06/17 08:59 Hydromorphone HCl (Dilaudid) 1 mg IVP Q6H PRN PRN Reason: PAIN Stop: 02/04/17 07:39 Last Admin: 12/08/16 04:02 Dose: 1 mg Piperacillin Sod/Tazobactam (Sod 3.375 gm/ Sodium Chloride) 50 mls @ 100 mls/ hr IV Q8HR [facility] Stop: 02/04/17 07:59 Last Admin: 12/08/16 04:56 Dose: 100 mls/hr Sodium Chloride (Nacl 0.9%) 1,000 mls @ 100 mls/hr IV .Q10H [facility] Stop: 02/04/17 07:41 Last Admin: 12/08/16 04:56 Dose: 100 mls/hr Vancomycin HCl 1.75 gm/ Sodium (Chloride) 500 mls @ 250 mls/hr IV Q8H [facility] Stop: 02/05/17 08:59 Last Infusion: 12/08/16 02:34 Dose: Infused Miscellaneous (Vancomycin Iv Per Pharmacy) 1 ea PRN PRN PRN Reason: PROTOCOL Stop: 02/04/17 07:35 General: no acute distress, well developed, well nourished HEENT: atraumatic, normocephalic, PERRLA, EOMI, moist mucous membrane Neck: supple Cardiovascular: S1S2, regular Lungs: clear to auscultation bilaterally, clear to percussion Abdomen: soft, no tender, no distended, no mass Extremities: no cyanosis, no clubbing, no edema Neurological: awake, alert, oriented Skin: intact, other (There is open wound draining wound over the skin overlying the right sternoclavivular joint.) Infectious Disease Assmt/Plan - Assessment Assessment: 1. Staph sepsis. 2. Upper chest wall wound. cellulitis. 3. 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 Repeat blood culture. and Echo. Agree with MRI. Continue vanco IV and Zosyn.
[2016-12-08 09:27] LABS: INR 1.14 (0.5-1.4)
[2016-12-08] MEDS: Diclofenac 75 mg Tab PO SCH ×2 (10:10→16:32)
--- NOTE | 2016-12-08 14:38 | Diagnostic Imaging Report ---
MRI right upper extremity without IV contrast History: Pain, possible right clavicular osteomyelitis Comparison: Nuclear medicine Bone scan performed 12/07/2016 Technique/procedure: Multiplanar T1, T2, and STIR-weighted images of the right upper extremity including the right shoulder and right clavicle were obtained without IV contrast Findings: Exam is limited due to motion as patient could not tolerate the entire procedure. A large effusion of the right glenohumeral joint is noted. Glenohumeral arthritis is also noted. There is distention of the joint capsule. There is abnormal signal and fluid seen along the medial aspect of the right clavicle with what appears to be fluid along the right sternoclavicular joint. There is also evidence of mild edema within the right pectoralis musculature. Generalized abnormal bone marrow signal of the vertebral bodies is noted. IMPRESSION: Limited exam due to motion as patient could not tolerate the entire procedure. There is abnormal bone marrow signal within the medial aspect of the right clavicle corresponding to area of increased uptake on recent nuclear medicine bone scan. 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 There is also fluid seen along the right sternoclavicular joint. Note also that osteomyelitis along the right upper adjacent manubrium in this region cannot be excluded. Clinical correlation follow-up is recommended. Large effusion within right glenohumeral joint with distention of the joint capsule Probable mild edema within the right pectoralis muscles. Decreased utilized bone marrow signal noted. This finding is nonspecific and may be due to etiology such and anemia, smoking, or less likely myeloproliferative disorder.
[2016-12-09] MEDS: HYDROmorphone 1 mg/mL 1mL Syr IVP PRN ×2 (00:44→21:57)
[2016-12-09] MEDS: Vancomycin HCl 1.75 GM in Sodium Chloride 0.9% 500 ML IV SCH ×2 (00:44→10:43)
[2016-12-09 06:06] LABS: % BASOPHILS 0.1 % (0.0-2.0); % EOSINOPHILS 1.6 % (0.0-5.0); % LYMPHOCYTES 12.2 % (20.0-50.0); % MONOCYTES 8.6 % (2.0-10.0); % NEUTROPHILS 77.5 % (40.0-80.0); HEMATOCRIT 34.7 % (39.0-49.0); HEMOGLOBIN 11.6 gm/dL (13.2-17.3); MEAN CELL VOLUME 83.5 fl (80-99); MEAN CORPUSCULAR HEMOGLOBIN 27.9 pg (26.0-30.0); MEAN CORPUSCULAR HGB CONC 33.4 pg (28.0-36.0); MEAN PLATELET VOLUME 7.1 fl; NEUTROPHILE ABSOLUTE 11.7 Th/cmm (1.8-8.0); PLATELET COUNT 624 Th/cmm (150-400); RED BLOOD COUNT 4.16 Mil/cmm (4.30-5.70); RED CELL DISTRIBUTION WIDTH 12.6 % (11.5-20.0)
[2016-12-09 06:29] LABS: ALB/GLOB RATIO 0.6 (1.0-1.8); ALKALINE PHOSPHATASE 61 U/L (34-104); ANION GAP 7.4 (7.0-16.0); BILIRUBIN,TOTAL 0.5 mg/dL (0.3-1.0); BUN - UREA NITROGEN 16 mg/dL (7-25); BUN/CREATININE RATIO 26.7; CALCIUM SERUM 8.2 mg/dL (8.6-10.3); CARBON DIOXIDE 28.3 mEq/L (21.0-31.0); CHLORIDE 102 mEq/L (98-107); CREATININE - SERUM 0.6 mg/dL (0.7-1.3); GLUCOSE 138 mg/dL (70-105); POTASSIUM SERUM 3.7 mEq/L (3.5-5.1); SGOT 16 U/L (13-39); SGPT/ALT 21 U/L (7-52); SODIUM SERUM 134 mEq/L (136-145)
[2016-12-09] MEDS: Diclofenac 75 mg Tab PO SCH ×2 (09:07→16:47)
--- NOTE | 2016-12-09 09:20 | General Progress Note ---
Subjective - Review of Systems Service Date: 12/09/16 Subjective: I fell better Objective - Results Result Diagrams: 12/09/16 05:55 12/09/16 05:55 Recent Labs: Laboratory Last Values WBC 15.0 Th/cmm (4.8-10.8) H D 12/09/16 05:55 RBC 4.16 Mil/cmm (4.30-5.70) L 12/09/16 05:55 Hgb 11.6 gm/dL (13.2-17.3) L 12/09/16 05:55 Hct 34.7 % (39.0-49.0) L 12/09/16 05:55 MCV 83.5 fl (80-99) 12/09/16 05:55 MCH 27.9 pg (26.0-30.0) 12/09/16 05:55 MCHC Differential 33.4 pg (28.0-36.0) 12/09/16 05:55 RDW 12.6 % (11.5-20.0) 12/09/16 05:55 Plt Count 624 Th/cmm (150-400) H 12/09/16 05:55 MPV 7.1 fl 12/09/16 05:55 Neutrophils % 77.5 % (40.0-80.0) 12/09/16 05:55 Band Neutrophils % 2 % (0-10) 12/08/16 05:45 Lymphocytes % 12.2 % (20.0-50.0) L 12/09/16 05:55 Monocytes % 8.6 % (2.0-10.0) 12/09/16 05:55 Eosinophils % 1.6 % (0.0-5.0) 12/09/16 05:55 Basophils % 0.1 % (0.0-2.0) 12/09/16 05:55 Neutrophils (Manual) 79 % (40-80) 12/08/16 05:45 Lymphocytes 9 % (20-50) L 12/08/16 05:45 Monocytes 10 % (2-10) 12/08/16 05:45 Atypical Lymphocytes 4 % 12/06/16 08:06 Platelet Estimate INCREASED PLATELETS (NORMAL) 12/08/16 05:45 Platelet Morphology GIANT PLATELETS SEEN (NORMAL) 12/08/16 05:45 ESR 75 mm/hr (0-20) H 12/09/16 05:55 PT 12.0 SECONDS (9.5-11.5) H 12/08/16 05:45 INR 1.14 (0.5-1.4) 12/08/16 05:45 Sodium 134 mEq/L (136-145) L 12/09/16 05:55 Potassium 3.7 mEq/L (3.5-5.1) 12/09/16 05:55 Chloride 102 mEq/L (98-107) 12/09/16 05:55 Carbon Dioxide 28.3 mEq/L (21.0-31.0) 12/09/16 05:55 Anion Gap 7.4 (7.0-16.0) 12/09/16 05:55 BUN 16 mg/dL (7-25) 12/09/16 05:55 Creatinine 0.6 mg/dL (0.7-1.3) L 12/09/16 05:55 Est GFR ( Amer) > 60.0 ml/min (>90) 12/09/16 05:55 Est GFR (Non-Af Amer) > 60.0 ml/min 12/09/16 05:55 BUN/Creatinine Ratio 26.7 12/09/16 05:55 Glucose 138 mg/dL (70-105) H 12/09/16 05:55 Calcium 8.2 mg/dL (8.6-10.3) L 12/09/16 05:55 Total Bilirubin 0.5 mg/dL (0.3-1.0) 12/09/16 05:55 AST 16 U/L (13-39) 12/09/16 05:55 ALT 21 U/L (7-52) 12/09/16 05:55 Alkaline Phosphatase 61 U/L (34-104) 12/09/16 05:55 C-Reactive Protein 15.7 mg/dL (0.0-0.9) H 12/09/16 05:55 Total Protein 6.2 gm/dL (6.0-8.3) 12/09/16 05:55 Albumin 2.3 gm/dL (4.2-5.5) L 12/09/16 05:55 Globulin 3.9 gm/dL 12/09/16 05:55 Albumin/Globulin Ratio 0.6 (1.0-1.8) L 12/09/16 05:55 Vancomycin Trough 26.1 ug/mL (10-20) H 12/09/16 08:05 Urine Opiates Screen POSITIVE (NEGATIVE) H 12/06/16 10:30 Urine Methadone Screen NEGATIVE (NEGATIVE) 12/06/16 10:30 Ur Barbiturates Screen NEGATIVE (NEGATIVE) 12/06/16 10:30 Ur Tricyclics Screen NEGATIVE (NEGATIVE) 12/06/16 10:30 Ur Phencyclidine Scrn NEGATIVE (NEGATIVE) 12/06/16 10:30 Amphetamines Screen POSITIVE (NEGATIVE) H 12/06/16 10:30 U Methamphetamines Scrn NEGATIVE (NEGATIVE) 12/06/16 10:30 U Benzodiazepines Scrn NEGATIVE (NEGATIVE) 12/06/16 10:30 U Cocaine Metab Screen NEGATIVE (NEGATIVE) 12/06/16 10:30 U Cannabinoids Screen NEGATIVE (NEGATIVE) 12/06/16 10:30 - Physical Exam Vitals and I&O: Vital Signs Temp 97.7 F 12/09/16 03:53 Pulse 85 12/09/16 03:53 Resp 18 12/09/16 03:53 BP 121/70 12/09/16 03:53 Pulse Ox 98 12/09/16 03:53 Intake & Output 12/08/16 12/09/16 12/09/16 18:59 06:59 18:59 Intake Total 2150 650 100 Output Total 300 500 Balance 2150 350 -400 Intake: Intake, IV Amount 550 550 Piperacillin Sodium/ 50 50 Tazobact 3.375 gm In Sodium Chloride 0.9% 50 ml @ 100 mls/hr IV Q8HR [facility] Rx#:[id number] Vancomycin HCl 1.75 gm In 500 500 Sodium Chloride 0.9% 500 ml @ 250 mls/hr IV Q8H [facility] Rx#:[id number] Oral 1600 100 100 Output: Urine 300 500 Other: # Voids 4 1 # Bowel Movements 0 Stool Characteristics Soft Soft Active Medications: Current Medications Acetaminophen (Tylenol) 650 mg PO Q6H PRN PRN Reason: Fever > 101 Stop: 02/04/17 19:52 Last Admin: 12/09/16 05:12 Dose: 650 mg Aspirin (Aspirin) 325 mg PO DAILY [facility] Stop: 02/06/17 08:59 Last Admin: 12/09/16 09:07 Dose: 325 mg Diclofenac Sodium (Voltaren) 75 mg PO BID [facility] Stop: 02/06/17 08:59 Last Admin: 12/09/16 09:07 Dose: 75 mg Hydromorphone HCl (Dilaudid) 1 mg IVP Q6H PRN PRN Reason: PAIN Stop: 02/04/17 07:39 Last Admin: 12/09/16 00:44 Dose: 1 mg Piperacillin Sod/Tazobactam (Sod 3.375 gm/ Sodium Chloride) 50 mls @ 100 mls/ hr IV Q8HR [facility] Stop: 02/04/17 07:59 Last Admin: 12/09/16 05:11 Dose: 100 mls/hr Sodium Chloride (Nacl 0.9%) 1,000 mls @ 100 mls/hr IV .Q10H [facility] Stop: 02/04/17 07:41 Last Admin: 12/08/16 04:56 Dose: 100 mls/hr Vancomycin HCl 1.75 gm/ Sodium (Chloride) 500 mls @ 250 mls/hr IV Q8H [facility] Stop: 02/05/17 08:59 Last Admin: 12/09/16 00:44 Dose: 250 mls/hr Miscellaneous (Vancomycin Iv Per Pharmacy) 1 ea [facility] PRN PRN PRN Reason: PROTOCOL Stop: 02/04/17 07:35 General: Alert, Oriented x3, Cooperative, No acute distress HEENT: Atraumatic Neck: Supple Cardiovascular: Regular rate Lungs: Clear to auscultation Abdomen: Bowel sounds, Soft Extremities: Other (No edema) Neurological: Normal gait Skin: Other (Thoracic abcess with no drainage.) Psych/Mental Status: Mental status NL Assessment/Plan - Assessment Assessment: Patient is awake, calm in no distress. Today WBC improved. Agree with MRI. Dx: Sepsis secondary to cellulites and abscess, Osteomyelitis - Plan Plan: Patient in [facility] and zosyn, Will continue to monitor.
[2016-12-09] MEDS: Sodium Chloride 0.9% 1,000 ML IV SCH (16:50)
--- NOTE | 2016-12-09 20:37 | Cardiology ---
12/09/2016 ECHOCARDIOGRAM The patient of Dr. Tone Cedillo. M-mode echo technically poor. 2D echo technically poor. Only structure visualized in apical 4 chamber view, which showed normal-sized left ventricle with minimal hypertrophy of the left ventricle, ejection fraction of 60%. Left atrium normal. Right ventricular cavity, right atrium normal, and trace mitral regurgitation. Technically poor echo. JOB# [id number]
[2016-12-10] MEDS: Vancomycin HCl 1.75 GM in Sodium Chloride 0.9% 500 ML IV SCH ×2 (01:20→13:06)
[2016-12-10] MEDS: HYDROmorphone 1 mg/mL 1mL Syr IVP PRN ×2 (03:28→20:59)
[2016-12-10] MEDS: Diclofenac 75 mg Tab PO SCH ×2 (08:32→16:32)
--- NOTE | 2016-12-10 13:23 | General Progress Note ---
Subjective - Review of Systems Service Date: 12/10/16 Subjective: I fell better Objective - Results Result Diagrams: 12/09/16 05:55 12/09/16 05:55 Recent Labs: Laboratory Last Values WBC 15.0 Th/cmm (4.8-10.8) H D 12/09/16 05:55 RBC 4.16 Mil/cmm (4.30-5.70) L 12/09/16 05:55 Hgb 11.6 gm/dL (13.2-17.3) L 12/09/16 05:55 Hct 34.7 % (39.0-49.0) L 12/09/16 05:55 MCV 83.5 fl (80-99) 12/09/16 05:55 MCH 27.9 pg (26.0-30.0) 12/09/16 05:55 MCHC Differential 33.4 pg (28.0-36.0) 12/09/16 05:55 RDW 12.6 % (11.5-20.0) 12/09/16 05:55 Plt Count 624 Th/cmm (150-400) H 12/09/16 05:55 MPV 7.1 fl 12/09/16 05:55 Neutrophils % 77.5 % (40.0-80.0) 12/09/16 05:55 Band Neutrophils % 2 % (0-10) 12/08/16 05:45 Lymphocytes % 12.2 % (20.0-50.0) L 12/09/16 05:55 Monocytes % 8.6 % (2.0-10.0) 12/09/16 05:55 Eosinophils % 1.6 % (0.0-5.0) 12/09/16 05:55 Basophils % 0.1 % (0.0-2.0) 12/09/16 05:55 Neutrophils (Manual) 79 % (40-80) 12/08/16 05:45 Lymphocytes 9 % (20-50) L 12/08/16 05:45 Monocytes 10 % (2-10) 12/08/16 05:45 Atypical Lymphocytes 4 % 12/06/16 08:06 Platelet Estimate INCREASED PLATELETS (NORMAL) 12/08/16 05:45 Platelet Morphology GIANT PLATELETS SEEN (NORMAL) 12/08/16 05:45 ESR 75 mm/hr (0-20) H 12/09/16 05:55 PT 12.0 SECONDS (9.5-11.5) H 12/08/16 05:45 INR 1.14 (0.5-1.4) 12/08/16 05:45 Sodium 134 mEq/L (136-145) L 12/09/16 05:55 Potassium 3.7 mEq/L (3.5-5.1) 12/09/16 05:55 Chloride 102 mEq/L (98-107) 12/09/16 05:55 Carbon Dioxide 28.3 mEq/L (21.0-31.0) 12/09/16 05:55 Anion Gap 7.4 (7.0-16.0) 12/09/16 05:55 BUN 16 mg/dL (7-25) 12/09/16 05:55 Creatinine 0.6 mg/dL (0.7-1.3) L 12/09/16 05:55 Est GFR ( Amer) > 60.0 ml/min (>90) 12/09/16 05:55 Est GFR (Non-Af Amer) > 60.0 ml/min 12/09/16 05:55 BUN/Creatinine Ratio 26.7 12/09/16 05:55 Glucose 138 mg/dL (70-105) H 12/09/16 05:55 Calcium 8.2 mg/dL (8.6-10.3) L 12/09/16 05:55 Total Bilirubin 0.5 mg/dL (0.3-1.0) 12/09/16 05:55 AST 16 U/L (13-39) 12/09/16 05:55 ALT 21 U/L (7-52) 12/09/16 05:55 Alkaline Phosphatase 61 U/L (34-104) 12/09/16 05:55 C-Reactive Protein 15.7 mg/dL (0.0-0.9) H 12/09/16 05:55 Total Protein 6.2 gm/dL (6.0-8.3) 12/09/16 05:55 Albumin 2.3 gm/dL (4.2-5.5) L 12/09/16 05:55 Globulin 3.9 gm/dL 12/09/16 05:55 Albumin/Globulin Ratio 0.6 (1.0-1.8) L 12/09/16 05:55 Vancomycin Trough 26.1 ug/mL (10-20) H 12/09/16 08:05 Urine Opiates Screen POSITIVE (NEGATIVE) H 12/06/16 10:30 Urine Methadone Screen NEGATIVE (NEGATIVE) 12/06/16 10:30 Ur Barbiturates Screen NEGATIVE (NEGATIVE) 12/06/16 10:30 Ur Tricyclics Screen NEGATIVE (NEGATIVE) 12/06/16 10:30 Ur Phencyclidine Scrn NEGATIVE (NEGATIVE) 12/06/16 10:30 Amphetamines Screen POSITIVE (NEGATIVE) H 12/06/16 10:30 U Methamphetamines Scrn NEGATIVE (NEGATIVE) 12/06/16 10:30 U Benzodiazepines Scrn NEGATIVE (NEGATIVE) 12/06/16 10:30 U Cocaine Metab Screen NEGATIVE (NEGATIVE) 12/06/16 10:30 U Cannabinoids Screen NEGATIVE (NEGATIVE) 12/06/16 10:30 - Physical Exam Vitals and I&O: Vital Signs Temp 98.3 F 12/10/16 08:00 Pulse 86 12/10/16 08:00 Resp 18 12/10/16 08:00 BP 119/79 12/10/16 08:00 Pulse Ox 94 12/10/16 04:00 Intake & Output 12/09/16 12/10/16 12/10/16 18:59 06:59 18:59 Intake Total 720 1800 240 Output Total 500 3200 Balance 220 -1400 240 Intake: Intake, IV Amount 50 600 Piperacillin Sodium/ 50 100 Tazobact 3.375 gm In Sodium Chloride 0.9% 50 ml @ 100 mls/hr IV Q8HR [facility] Rx#:[id number] Vancomycin HCl 1.75 gm In 500 Sodium Chloride 0.9% 500 ml @ 250 mls/hr IV Q12H [facility] Rx#:[id number] Oral 670 1200 240 Output: Urine 500 3200 Other: # Bowel Movements 0 0 Stool Characteristics Soft Active Medications: Current Medications Acetaminophen (Tylenol) 650 mg PO Q6H PRN PRN Reason: Fever > 101 Stop: 02/04/17 19:52 Last Admin: 12/09/16 21:26 Dose: 650 mg Aspirin (Aspirin) 325 mg PO DAILY COUNT INCLUDES THE [facility] Stop: 02/06/17 08:59 Last Admin: 12/10/16 08:32 Dose: 325 mg Diclofenac Sodium (Voltaren) 75 mg PO BID [facility] Stop: 02/06/17 08:59 Last Admin: 12/10/16 08:32 Dose: 75 mg Hydromorphone HCl (Dilaudid) 1 mg IVP Q6H PRN PRN Reason: PAIN Stop: 02/04/17 07:39 Last Admin: 12/10/16 03:28 Dose: 1 mg Piperacillin Sod/Tazobactam (Sod 3.375 gm/ Sodium Chloride) 50 mls @ 100 mls/ hr IV Q8HR [facility] Stop: 02/04/17 07:59 Last Admin: 12/10/16 12:19 Dose: 100 mls/hr Sodium Chloride (Nacl 0.9%) 1,000 mls @ 100 mls/hr IV .Q10H [facility] Stop: 02/04/17 07:41 Last Admin: 12/09/16 16:50 Dose: 100 mls/hr Vancomycin HCl 1.75 gm/ Sodium (Chloride) 500 mls @ 250 mls/hr IV Q12H [facility] Stop: 02/08/17 00:59 Last Admin: 12/10/16 13:06 Dose: 250 mls/hr Miscellaneous (Vancomycin Iv Per Pharmacy) 1 ea MC PRN PRN PRN Reason: PROTOCOL Stop: 02/04/17 07:35 General: Alert, Oriented x3, Cooperative, No acute distress HEENT: Atraumatic Neck: Supple Cardiovascular: Regular rate Lungs: Clear to auscultation Abdomen: Bowel sounds, Soft Extremities: Other (No edema) Neurological: Normal gait Skin: Other (Abcess improving) Psych/Mental Status: Mental status NL Assessment/Plan - Assessment Assessment: Patient is awake, calm in no distress. Today WBC improved. Agree with MRI. Dx: Sepsis secondary to cellulites and abscess, Osteomyelitis. - Plan Plan: Patient in [facility] and [facility], Patient will be discharge.
--- NOTE | 2016-12-10 14:16 | Infectious Disease Prog Note ---
Infectious Disease Subjective - Review of Systems Service Date: 12/10/16 Subjective: There is no new change, there is no fever. blood culture grew GPC in clusters again. Infectious Disease Objective - Results Result Diagrams: 12/09/16 05:55 12/09/16 05:55 Recent Labs: Laboratory Last Values WBC 15.0 Th/cmm (4.8-10.8) H D 12/09/16 05:55 RBC 4.16 Mil/cmm (4.30-5.70) L 12/09/16 05:55 Hgb 11.6 gm/dL (13.2-17.3) L 12/09/16 05:55 Hct 34.7 % (39.0-49.0) L 12/09/16 05:55 MCV 83.5 fl (80-99) 12/09/16 05:55 MCH 27.9 pg (26.0-30.0) 12/09/16 05:55 MCHC Differential 33.4 pg (28.0-36.0) 12/09/16 05:55 RDW 12.6 % (11.5-20.0) 12/09/16 05:55 Plt Count 624 Th/cmm (150-400) H 12/09/16 05:55 MPV 7.1 fl 12/09/16 05:55 Neutrophils % 77.5 % (40.0-80.0) 12/09/16 05:55 Band Neutrophils % 2 % (0-10) 12/08/16 05:45 Lymphocytes % 12.2 % (20.0-50.0) L 12/09/16 05:55 Monocytes % 8.6 % (2.0-10.0) 12/09/16 05:55 Eosinophils % 1.6 % (0.0-5.0) 12/09/16 05:55 Basophils % 0.1 % (0.0-2.0) 12/09/16 05:55 Neutrophils (Manual) 79 % (40-80) 12/08/16 05:45 Lymphocytes 9 % (20-50) L 12/08/16 05:45 Monocytes 10 % (2-10) 12/08/16 05:45 Atypical Lymphocytes 4 % 12/06/16 08:06 Platelet Estimate INCREASED PLATELETS (NORMAL) 12/08/16 05:45 Platelet Morphology GIANT PLATELETS SEEN (NORMAL) 12/08/16 05:45 ESR 75 mm/hr (0-20) H 12/09/16 05:55 PT 12.0 SECONDS (9.5-11.5) H 12/08/16 05:45 INR 1.14 (0.5-1.4) 12/08/16 05:45 Sodium 134 mEq/L (136-145) L 12/09/16 05:55 Potassium 3.7 mEq/L (3.5-5.1) 12/09/16 05:55 Chloride 102 mEq/L (98-107) 12/09/16 05:55 Carbon Dioxide 28.3 mEq/L (21.0-31.0) 12/09/16 05:55 Anion Gap 7.4 (7.0-16.0) 12/09/16 05:55 BUN 16 mg/dL (7-25) 12/09/16 05:55 Creatinine 0.6 mg/dL (0.7-1.3) L 12/09/16 05:55 Est GFR ( Amer) > 60.0 ml/min (>90) 12/09/16 05:55 Est GFR (Non-Af Amer) > 60.0 ml/min 12/09/16 05:55 BUN/Creatinine Ratio 26.7 12/09/16 05:55 Glucose 138 mg/dL (70-105) H 12/09/16 05:55 Calcium 8.2 mg/dL (8.6-10.3) L 12/09/16 05:55 Total Bilirubin 0.5 mg/dL (0.3-1.0) 12/09/16 05:55 AST 16 U/L (13-39) 12/09/16 05:55 ALT 21 U/L (7-52) 12/09/16 05:55 Alkaline Phosphatase 61 U/L (34-104) 12/09/16 05:55 C-Reactive Protein 15.7 mg/dL (0.0-0.9) H 12/09/16 05:55 Total Protein 6.2 gm/dL (6.0-8.3) 12/09/16 05:55 Albumin 2.3 gm/dL (4.2-5.5) L 12/09/16 05:55 Globulin 3.9 gm/dL 12/09/16 05:55 Albumin/Globulin Ratio 0.6 (1.0-1.8) L 12/09/16 05:55 Vancomycin Trough 26.1 ug/mL (10-20) H 12/09/16 08:05 Urine Opiates Screen POSITIVE (NEGATIVE) H 12/06/16 10:30 Urine Methadone Screen NEGATIVE (NEGATIVE) 12/06/16 10:30 Ur Barbiturates Screen NEGATIVE (NEGATIVE) 12/06/16 10:30 Ur Tricyclics Screen NEGATIVE (NEGATIVE) 12/06/16 10:30 Ur Phencyclidine Scrn NEGATIVE (NEGATIVE) 12/06/16 10:30 Amphetamines Screen POSITIVE (NEGATIVE) H 12/06/16 10:30 U Methamphetamines Scrn NEGATIVE (NEGATIVE) 12/06/16 10:30 U Benzodiazepines Scrn NEGATIVE (NEGATIVE) 12/06/16 10:30 U Cocaine Metab Screen NEGATIVE (NEGATIVE) 12/06/16 10:30 U Cannabinoids Screen NEGATIVE (NEGATIVE) 12/06/16 10:30 - Physical Exam Vitals and I&O: Vital Signs Temp 98.3 F 12/10/16 08:00 Pulse 86 12/10/16 08:00 Resp 18 12/10/16 08:00 BP 119/79 12/10/16 08:00 Pulse Ox 94 12/10/16 04:00 Intake & Output 12/09/16 12/10/16 12/10/16 18:59 06:59 18:59 Intake Total 720 1800 240 Output Total 500 3200 Balance 220 -1400 240 Intake: Intake, IV Amount 50 600 Piperacillin Sodium/ 50 100 Tazobact 3.375 gm In Sodium Chloride 0.9% 50 ml @ 100 mls/hr IV Q8HR [facility] Rx#:[id number] Vancomycin HCl 1.75 gm In 500 Sodium Chloride 0.9% 500 ml @ 250 mls/hr IV Q12H [facility] Rx#:[id number] Oral 670 1200 240 Output: Urine 500 3200 Other: # Bowel Movements 0 0 Stool Characteristics Soft Active Medications: Current Medications Acetaminophen (Tylenol) 650 mg PO Q6H PRN PRN Reason: Fever > 101 Stop: 02/04/17 19:52 Last Admin: 12/09/16 21:26 Dose: 650 mg Aspirin (Aspirin) 325 mg PO DAILY [facility] Stop: 02/06/17 08:59 Last Admin: 12/10/16 08:32 Dose: 325 mg Diclofenac Sodium (Voltaren) 75 mg PO BID [facility] Stop: 02/06/17 08:59 Last Admin: 12/10/16 08:32 Dose: 75 mg Hydromorphone HCl (Dilaudid) 1 mg IVP Q6H PRN PRN Reason: PAIN Stop: 02/04/17 07:39 Last Admin: 12/10/16 03:28 Dose: 1 mg Piperacillin Sod/Tazobactam (Sod 3.375 gm/ Sodium Chloride) 50 mls @ 100 mls/ hr IV Q8HR [facility] Stop: 02/04/17 07:59 Last Admin: 12/10/16 12:19 Dose: 100 mls/hr Vancomycin HCl 1.75 gm/ Sodium (Chloride) 500 mls @ 250 mls/hr IV Q12H [facility] Stop: 02/08/17 00:59 Last Admin: 12/10/16 13:06 Dose: 250 mls/hr Miscellaneous (Vancomycin Iv Per Pharmacy) 1 ea [facility] PRN PRN PRN Reason: PROTOCOL Stop: 02/04/17 07:35 General: no acute distress, cachectic HEENT: atraumatic, normocephalic, PERRLA, EOMI Neck: supple Cardiovascular: S1S2, regular Lungs: clear to auscultation bilaterally, clear to percussion Abdomen: soft, no tender, no distended Extremities: no cyanosis, no clubbing, no edema Neurological: awake, alert, oriented Skin: other (right upper chest wound.) Infectious Disease Assmt/Plan - Assessment Assessment: 1. Staph sepsis. MSSA , high grade bacteremia. 2. Upper chest wall wound. cellulitis. 3. 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 Repeat blood culture. and Echo. Agree with MRI. Change antibiotic to nafcillin.
[2016-12-10] MEDS: Nafcillin 2 GM in Sodium Chloride 0.9% 100 ML IV SCH ×2 (15:20→20:22)
[2016-12-11] MEDS: HYDROmorphone 1 mg/mL 1mL Syr IVP PRN ×3 (03:34→16:31)
[2016-12-11] MEDS: Nafcillin 2 GM in Sodium Chloride 0.9% 100 ML IV SCH ×6 (04:00→20:35)
[2016-12-11 05:56] LABS: % BASOPHILS 0.1 % (0.0-2.0); % EOSINOPHILS 1.6 % (0.0-5.0); % LYMPHOCYTES 13.7 % (20.0-50.0); % MONOCYTES 8.7 % (2.0-10.0); % NEUTROPHILS 75.9 % (40.0-80.0); HEMOGLOBIN 10.4 gm/dL (13.2-17.3); MEAN CELL VOLUME 80.3 fl (80-99); MEAN CORPUSCULAR HEMOGLOBIN 27.8 pg (26.0-30.0); MEAN CORPUSCULAR HGB CONC 34.7 pg (28.0-36.0); MEAN PLATELET VOLUME 7.2 fl; NEUTROPHILE ABSOLUTE 9.3 Th/cmm (1.8-8.0); PLATELET COUNT 675 Th/cmm (150-400); RED BLOOD COUNT 3.75 Mil/cmm (4.30-5.70); RED CELL DISTRIBUTION WIDTH 12.5 % (11.5-20.0)
[2016-12-11 06:07] LABS: HEMATOCRIT 30.1 % (39.0-49.0); WHITE BLOOD COUNT 12.3 Th/cmm (4.8-10.8)
[2016-12-11 06:36] LABS: ALB/GLOB RATIO 0.6 (1.0-1.8); ALKALINE PHOSPHATASE 60 U/L (34-104); ANION GAP 10.8 (7.0-16.0); BILIRUBIN,TOTAL 0.8 mg/dL (0.3-1.0); BUN - UREA NITROGEN 15 mg/dL (7-25); CALCIUM SERUM 8.9 mg/dL (8.6-10.3); CARBON DIOXIDE 28.8 mEq/L (21.0-31.0); CHLORIDE 98 mEq/L (98-107); CREATININE - SERUM 0.6 mg/dL (0.7-1.3); GLUCOSE 97 mg/dL (70-105); POTASSIUM SERUM 3.6 mEq/L (3.5-5.1); SGOT 14 U/L (13-39); SGPT/ALT 22 U/L (7-52); SODIUM SERUM 134 mEq/L (136-145)
[2016-12-11] MEDS: Diclofenac 75 mg Tab PO SCH ×2 (08:56→16:31)
--- NOTE | 2016-12-11 10:26 | General Progress Note ---
Subjective - Review of Systems Service Date: 12/11/16 Subjective: I am better Objective - Results Result Diagrams: 12/11/16 05:15 12/11/16 05:15 Recent Labs: Laboratory Last Values WBC 12.3 Th/cmm (4.8-10.8) H 12/11/16 05:15 RBC 3.75 Mil/cmm (4.30-5.70) L 12/11/16 05:15 Hgb 10.4 gm/dL (13.2-17.3) L 12/11/16 05:15 Hct 30.1 % (39.0-49.0) L D 12/11/16 05:15 MCV 80.3 fl (80-99) 12/11/16 05:15 MCH 27.8 pg (26.0-30.0) 12/11/16 05:15 MCHC Differential 34.7 pg (28.0-36.0) 12/11/16 05:15 RDW 12.5 % (11.5-20.0) 12/11/16 05:15 Plt Count 675 Th/cmm (150-400) H 12/11/16 05:15 MPV 7.2 fl 12/11/16 05:15 Neutrophils % 75.9 % (40.0-80.0) 12/11/16 05:15 Band Neutrophils % 2 % (0-10) 12/08/16 05:45 Lymphocytes % 13.7 % (20.0-50.0) L 12/11/16 05:15 Monocytes % 8.7 % (2.0-10.0) 12/11/16 05:15 Eosinophils % 1.6 % (0.0-5.0) 12/11/16 05:15 Basophils % 0.1 % (0.0-2.0) 12/11/16 05:15 Neutrophils (Manual) 79 % (40-80) 12/08/16 05:45 Lymphocytes 9 % (20-50) L 12/08/16 05:45 Monocytes 10 % (2-10) 12/08/16 05:45 Atypical Lymphocytes 4 % 12/06/16 08:06 Platelet Estimate INCREASED PLATELETS (NORMAL) 12/08/16 05:45 Platelet Morphology GIANT PLATELETS SEEN (NORMAL) 12/08/16 05:45 ESR 75 mm/hr (0-20) H 12/09/16 05:55 PT 12.0 SECONDS (9.5-11.5) H 12/08/16 05:45 INR 1.14 (0.5-1.4) 12/08/16 05:45 Sodium 134 mEq/L (136-145) L 12/11/16 05:15 Potassium 3.6 mEq/L (3.5-5.1) 12/11/16 05:15 Chloride 98 mEq/L (98-107) 12/11/16 05:15 Carbon Dioxide 28.8 mEq/L (21.0-31.0) 12/11/16 05:15 Anion Gap 10.8 (7.0-16.0) 12/11/16 05:15 BUN 15 mg/dL (7-25) 12/11/16 05:15 Creatinine 0.6 mg/dL (0.7-1.3) L 12/11/16 05:15 Est GFR ( Amer) > 60.0 ml/min (>90) 12/11/16 05:15 Est GFR (Non-Af Amer) > 60.0 ml/min 12/11/16 05:15 BUN/Creatinine Ratio 25.0 12/11/16 05:15 Glucose 97 mg/dL (70-105) 12/11/16 05:15 Calcium 8.9 mg/dL (8.6-10.3) 12/11/16 05:15 Total Bilirubin 0.8 mg/dL (0.3-1.0) 12/11/16 05:15 AST 14 U/L (13-39) 12/11/16 05:15 ALT 22 U/L (7-52) 12/11/16 05:15 Alkaline Phosphatase 60 U/L (34-104) 12/11/16 05:15 C-Reactive Protein 15.7 mg/dL (0.0-0.9) H 12/09/16 05:55 Total Protein 6.8 gm/dL (6.0-8.3) 12/11/16 05:15 Albumin 2.6 gm/dL (4.2-5.5) L 12/11/16 05:15 Globulin 4.2 gm/dL 12/11/16 05:15 Albumin/Globulin Ratio 0.6 (1.0-1.8) L 12/11/16 05:15 Vancomycin Trough 26.1 ug/mL (10-20) H 12/09/16 08:05 Urine Opiates Screen POSITIVE (NEGATIVE) H 12/06/16 10:30 Urine Methadone Screen NEGATIVE (NEGATIVE) 12/06/16 10:30 Ur Barbiturates Screen NEGATIVE (NEGATIVE) 12/06/16 10:30 Ur Tricyclics Screen NEGATIVE (NEGATIVE) 12/06/16 10:30 Ur Phencyclidine Scrn NEGATIVE (NEGATIVE) 12/06/16 10:30 Amphetamines Screen POSITIVE (NEGATIVE) H 12/06/16 10:30 U Methamphetamines Scrn NEGATIVE (NEGATIVE) 12/06/16 10:30 U Benzodiazepines Scrn NEGATIVE (NEGATIVE) 12/06/16 10:30 U Cocaine Metab Screen NEGATIVE (NEGATIVE) 12/06/16 10:30 U Cannabinoids Screen NEGATIVE (NEGATIVE) 12/06/16 10:30 - Physical Exam Vitals and I&O: Vital Signs Temp 98.8 F 12/11/16 08:24 Pulse 78 12/11/16 08:24 Resp 18 12/11/16 08:24 BP 136/81 12/11/16 08:24 Pulse Ox 99 12/11/16 08:24 Intake & Output 12/10/16 12/11/16 12/11/16 18:59 06:59 18:59 Intake Total 700 300 Output Total 2000 Balance -1300 300 Intake: Intake, IV Amount 100 300 Nafcillin 2 gm In Sodium 100 300 Chloride 0.9% 100 ml @ 100 mls/hr IV Q4HR [facility] Rx #:[id number] Oral 600 Output: Urine 1999 Active Medications: Current Medications Acetaminophen (Tylenol) 650 mg PO Q6H PRN PRN Reason: Fever > 101 Stop: 02/04/17 19:52 Last Admin: 12/09/16 21:26 Dose: 650 mg Aspirin (Aspirin) 325 mg PO DAILY [facility] Stop: 02/06/17 08:59 Last Admin: 12/11/16 08:56 Dose: 325 mg Diclofenac Sodium (Voltaren) 75 mg PO BID [facility] Stop: 02/06/17 08:59 Last Admin: 12/11/16 08:56 Dose: 75 mg Hydromorphone HCl (Dilaudid) 1 mg IVP Q6H PRN PRN Reason: PAIN Stop: 02/04/17 07:39 Last Admin: 12/11/16 09:54 Dose: 1 mg Nafcillin Sodium 2 gm/ Sodium (Chloride) 100 mls @ 100 mls/hr IV Q4HR [facility] Stop: 02/08/17 15:59 Last Admin: 12/11/16 08:56 Dose: 100 mls/hr General: Alert, Oriented x3, Cooperative, No acute distress HEENT: Atraumatic Neck: Supple Cardiovascular: Regular rate Lungs: Clear to auscultation Abdomen: Bowel sounds, Soft, Tender Extremities: Other (No edema) Neurological: Normal gait Skin: Other (thoracic abcess improving) Psych/Mental Status: Mental status NL Assessment/Plan - Assessment Assessment: Patient is awake, calm in no distress. Today WBC improved. Agree with MRI. Dx: Sepsis secondary to cellulites and abscess, Osteomyelitis. - Plan Plan: Patient in [facility] and [facility], Patient was not discharge due to blood culture positive.
[2016-12-12] MEDS: Nafcillin 2 GM in Sodium Chloride 0.9% 100 ML IV SCH ×6 (00:17→21:10)
[2016-12-12] MEDS: HYDROmorphone 1 mg/mL 1mL Syr IVP PRN ×4 (00:26→21:10)
[2016-12-12 05:17] LABS: % BASOPHILS 0.1 % (0.0-2.0); % EOSINOPHILS 2.5 % (0.0-5.0); % LYMPHOCYTES 20.6 % (20.0-50.0); % MONOCYTES 10.4 % (2.0-10.0); % NEUTROPHILS 66.4 % (40.0-80.0); HEMATOCRIT 30.2 % (39.0-49.0); HEMOGLOBIN 10.2 gm/dL (13.2-17.3); MEAN CORPUSCULAR HEMOGLOBIN 27.7 pg (26.0-30.0); MEAN CORPUSCULAR HGB CONC 33.8 pg (28.0-36.0); MEAN PLATELET VOLUME 7.1 fl; NEUTROPHILE ABSOLUTE 6.4 Th/cmm (1.8-8.0); PLATELET COUNT 743 Th/cmm (150-400); RED BLOOD COUNT 3.68 Mil/cmm (4.30-5.70); RED CELL DISTRIBUTION WIDTH 12.3 % (11.5-20.0); WHITE BLOOD COUNT 9.6 Th/cmm (4.8-10.8)
[2016-12-12 05:41] LABS: ALB/GLOB RATIO 0.6 (1.0-1.8); ALKALINE PHOSPHATASE 69 U/L (34-104); ANION GAP 9.7 (7.0-16.0); BILIRUBIN,TOTAL 0.4 mg/dL (0.3-1.0); BUN - UREA NITROGEN 15 mg/dL (7-25); BUN/CREATININE RATIO 21.4; CALCIUM SERUM 8.6 mg/dL (8.6-10.3); CARBON DIOXIDE 30.3 mEq/L (21.0-31.0); CHLORIDE 101 mEq/L (98-107); CREATININE - SERUM 0.7 mg/dL (0.7-1.3); GLUCOSE 97 mg/dL (70-105); SGOT 14 U/L (13-39); SGPT/ALT 19 U/L (7-52); SODIUM SERUM 137 mEq/L (136-145)
[2016-12-12] MEDS: Diclofenac 75 mg Tab PO SCH (08:05)
--- NOTE | 2016-12-12 09:24 | General Progress Note ---
Subjective - Review of Systems Service Date: 12/12/16 Subjective: I am better Objective - Results Result Diagrams: 12/12/16 04:39 12/12/16 04:39 Recent Labs: Laboratory Last Values WBC 9.6 Th/cmm (4.8-10.8) D 12/12/16 04:39 RBC 3.68 Mil/cmm (4.30-5.70) L 12/12/16 04:39 Hgb 10.2 gm/dL (13.2-17.3) L 12/12/16 04:39 Hct 30.2 % (39.0-49.0) L 12/12/16 04:39 MCV 82.0 fl (80-99) 12/12/16 04:39 MCH 27.7 pg (26.0-30.0) 12/12/16 04:39 MCHC Differential 33.8 pg (28.0-36.0) 12/12/16 04:39 RDW 12.3 % (11.5-20.0) 12/12/16 04:39 Plt Count 743 Th/cmm (150-400) H 12/12/16 04:39 MPV 7.1 fl 12/12/16 04:39 Neutrophils % 66.4 % (40.0-80.0) 12/12/16 04:39 Band Neutrophils % 2 % (0-10) 12/08/16 05:45 Lymphocytes % 20.6 % (20.0-50.0) 12/12/16 04:39 Monocytes % 10.4 % (2.0-10.0) H 12/12/16 04:39 Eosinophils % 2.5 % (0.0-5.0) 12/12/16 04:39 Basophils % 0.1 % (0.0-2.0) 12/12/16 04:39 Neutrophils (Manual) 79 % (40-80) 12/08/16 05:45 Lymphocytes 9 % (20-50) L 12/08/16 05:45 Monocytes 10 % (2-10) 12/08/16 05:45 Atypical Lymphocytes 4 % 12/06/16 08:06 Platelet Estimate INCREASED PLATELETS (NORMAL) 12/08/16 05:45 Platelet Morphology GIANT PLATELETS SEEN (NORMAL) 12/08/16 05:45 ESR 75 mm/hr (0-20) H 12/09/16 05:55 PT 12.0 SECONDS (9.5-11.5) H 12/08/16 05:45 INR 1.14 (0.5-1.4) 12/08/16 05:45 Sodium 137 mEq/L (136-145) 12/12/16 04:39 Potassium 4.0 mEq/L (3.5-5.1) 12/12/16 04:39 Chloride 101 mEq/L (98-107) 12/12/16 04:39 Carbon Dioxide 30.3 mEq/L (21.0-31.0) 12/12/16 04:39 Anion Gap 9.7 (7.0-16.0) 12/12/16 04:39 BUN 15 mg/dL (7-25) 12/12/16 04:39 Creatinine 0.7 mg/dL (0.7-1.3) 12/12/16 04:39 Est GFR ( Amer) > 60.0 ml/min (>90) 12/12/16 04:39 Est GFR (Non-Af Amer) > 60.0 ml/min 12/12/16 04:39 BUN/Creatinine Ratio 21.4 12/12/16 04:39 Glucose 97 mg/dL (70-105) 12/12/16 04:39 Calcium 8.6 mg/dL (8.6-10.3) 12/12/16 04:39 Total Bilirubin 0.4 mg/dL (0.3-1.0) 12/12/16 04:39 AST 14 U/L (13-39) 12/12/16 04:39 ALT 19 U/L (7-52) 12/12/16 04:39 Alkaline Phosphatase 69 U/L (34-104) 12/12/16 04:39 C-Reactive Protein 15.7 mg/dL (0.0-0.9) H 12/09/16 05:55 Total Protein 6.6 gm/dL (6.0-8.3) 12/12/16 04:39 Albumin 2.5 gm/dL (4.2-5.5) L 12/12/16 04:39 Globulin 4.1 gm/dL 12/12/16 04:39 Albumin/Globulin Ratio 0.6 (1.0-1.8) L 12/12/16 04:39 Vancomycin Trough 26.1 ug/mL (10-20) H 12/09/16 08:05 Urine Opiates Screen POSITIVE (NEGATIVE) H 12/06/16 10:30 Urine Methadone Screen NEGATIVE (NEGATIVE) 12/06/16 10:30 Ur Barbiturates Screen NEGATIVE (NEGATIVE) 12/06/16 10:30 Ur Tricyclics Screen NEGATIVE (NEGATIVE) 12/06/16 10:30 Ur Phencyclidine Scrn NEGATIVE (NEGATIVE) 12/06/16 10:30 Amphetamines Screen POSITIVE (NEGATIVE) H 12/06/16 10:30 U Methamphetamines Scrn NEGATIVE (NEGATIVE) 12/06/16 10:30 U Benzodiazepines Scrn NEGATIVE (NEGATIVE) 12/06/16 10:30 U Cocaine Metab Screen NEGATIVE (NEGATIVE) 12/06/16 10:30 U Cannabinoids Screen NEGATIVE (NEGATIVE) 12/06/16 10:30 - Physical Exam Vitals and I&O: Vital Signs Temp 99.0 F 12/12/16 04:00 Pulse 66 12/12/16 04:00 Resp 18 12/12/16 04:00 BP 130/74 12/12/16 04:00 Pulse Ox 96 12/12/16 04:00 Intake & Output 12/11/16 12/12/16 12/12/16 18:59 06:59 18:59 Intake Total 300 300 Output Total 600 850 Balance -300 -550 Intake: Intake, IV Amount 300 300 Nafcillin 2 gm In Sodium 300 300 Chloride 0.9% 100 ml @ 100 mls/hr IV Q4HR [facility] Rx #:[id number] Output: Urine 600 850 Other: # Voids 4 Active Medications: Current Medications Acetaminophen (Tylenol) 650 mg PO Q6H PRN PRN Reason: Fever > 101 Stop: 02/04/17 19:52 Last Admin: 12/09/16 21:26 Dose: 650 mg Aspirin (Aspirin) 325 mg PO DAILY [facility] Stop: 02/06/17 08:59 Last Admin: 12/12/16 08:05 Dose: 325 mg Diclofenac Sodium (Voltaren) 75 mg PO BID [facility] Stop: 02/06/17 08:59 Last Admin: 12/12/16 08:05 Dose: 75 mg Hydromorphone HCl (Dilaudid) 1 mg IVP Q6H PRN PRN Reason: PAIN Stop: 02/04/17 07:39 Last Admin: 12/12/16 08:06 Dose: 1 mg Nafcillin Sodium 2 gm/ Sodium (Chloride) 100 mls @ 100 mls/hr IV Q4HR [facility] Stop: 02/08/17 15:59 Last Admin: 12/12/16 08:05 Dose: 100 mls/hr General: Alert, Oriented x3, Cooperative, No acute distress HEENT: Atraumatic Cardiovascular: Regular rate Lungs: Clear to auscultation Abdomen: Bowel sounds Extremities: Other (no edema) Neurological: Normal gait Skin: Other (Thoracic abcess improving) Psych/Mental Status: Mental status NL Assessment/Plan - Assessment Assessment: Patient is awake, calm in no distress. Today WBC improved. Agree with MRI. Dx: Sepsis secondary to cellulites and abscess, Osteomyelitis. - Plan Plan: Patient in [facility] and [facility], Patient was not discharge due to blood culture positive.
--- NOTE | 2016-12-12 09:45 | Infectious Disease Prog Note ---
Infectious Disease Subjective - Review of Systems Service Date: 12/12/16 Subjective: There is no new change, there is no fever. blood culture grew MSSA in clusters again. Infectious Disease Objective - Results Result Diagrams: 12/12/16 04:39 12/12/16 04:39 Recent Labs: Laboratory Last Values WBC 9.6 Th/cmm (4.8-10.8) D 12/12/16 04:39 RBC 3.68 Mil/cmm (4.30-5.70) L 12/12/16 04:39 Hgb 10.2 gm/dL (13.2-17.3) L 12/12/16 04:39 Hct 30.2 % (39.0-49.0) L 12/12/16 04:39 MCV 82.0 fl (80-99) 12/12/16 04:39 MCH 27.7 pg (26.0-30.0) 12/12/16 04:39 MCHC Differential 33.8 pg (28.0-36.0) 12/12/16 04:39 RDW 12.3 % (11.5-20.0) 12/12/16 04:39 Plt Count 743 Th/cmm (150-400) H 12/12/16 04:39 MPV 7.1 fl 12/12/16 04:39 Neutrophils % 66.4 % (40.0-80.0) 12/12/16 04:39 Band Neutrophils % 2 % (0-10) 12/08/16 05:45 Lymphocytes % 20.6 % (20.0-50.0) 12/12/16 04:39 Monocytes % 10.4 % (2.0-10.0) H 12/12/16 04:39 Eosinophils % 2.5 % (0.0-5.0) 12/12/16 04:39 Basophils % 0.1 % (0.0-2.0) 12/12/16 04:39 Neutrophils (Manual) 79 % (40-80) 12/08/16 05:45 Lymphocytes 9 % (20-50) L 12/08/16 05:45 Monocytes 10 % (2-10) 12/08/16 05:45 Atypical Lymphocytes 4 % 12/06/16 08:06 Platelet Estimate INCREASED PLATELETS (NORMAL) 12/08/16 05:45 Platelet Morphology GIANT PLATELETS SEEN (NORMAL) 12/08/16 05:45 ESR 75 mm/hr (0-20) H 12/09/16 05:55 PT 12.0 SECONDS (9.5-11.5) H 12/08/16 05:45 INR 1.14 (0.5-1.4) 12/08/16 05:45 Sodium 137 mEq/L (136-145) 12/12/16 04:39 Potassium 4.0 mEq/L (3.5-5.1) 12/12/16 04:39 Chloride 101 mEq/L (98-107) 12/12/16 04:39 Carbon Dioxide 30.3 mEq/L (21.0-31.0) 12/12/16 04:39 Anion Gap 9.7 (7.0-16.0) 12/12/16 04:39 BUN 15 mg/dL (7-25) 12/12/16 04:39 Creatinine 0.7 mg/dL (0.7-1.3) 12/12/16 04:39 Est GFR ( Amer) > 60.0 ml/min (>90) 12/12/16 04:39 Est GFR (Non-Af Amer) > 60.0 ml/min 12/12/16 04:39 BUN/Creatinine Ratio 21.4 12/12/16 04:39 Glucose 97 mg/dL (70-105) 12/12/16 04:39 Calcium 8.6 mg/dL (8.6-10.3) 12/12/16 04:39 Total Bilirubin 0.4 mg/dL (0.3-1.0) 12/12/16 04:39 AST 14 U/L (13-39) 12/12/16 04:39 ALT 19 U/L (7-52) 12/12/16 04:39 Alkaline Phosphatase 69 U/L (34-104) 12/12/16 04:39 C-Reactive Protein 15.7 mg/dL (0.0-0.9) H 12/09/16 05:55 Total Protein 6.6 gm/dL (6.0-8.3) 12/12/16 04:39 Albumin 2.5 gm/dL (4.2-5.5) L 12/12/16 04:39 Globulin 4.1 gm/dL 12/12/16 04:39 Albumin/Globulin Ratio 0.6 (1.0-1.8) L 12/12/16 04:39 Vancomycin Trough 26.1 ug/mL (10-20) H 12/09/16 08:05 Urine Opiates Screen POSITIVE (NEGATIVE) H 12/06/16 10:30 Urine Methadone Screen NEGATIVE (NEGATIVE) 12/06/16 10:30 Ur Barbiturates Screen NEGATIVE (NEGATIVE) 12/06/16 10:30 Ur Tricyclics Screen NEGATIVE (NEGATIVE) 12/06/16 10:30 Ur Phencyclidine Scrn NEGATIVE (NEGATIVE) 12/06/16 10:30 Amphetamines Screen POSITIVE (NEGATIVE) H 12/06/16 10:30 U Methamphetamines Scrn NEGATIVE (NEGATIVE) 12/06/16 10:30 U Benzodiazepines Scrn NEGATIVE (NEGATIVE) 12/06/16 10:30 U Cocaine Metab Screen NEGATIVE (NEGATIVE) 12/06/16 10:30 U Cannabinoids Screen NEGATIVE (NEGATIVE) 12/06/16 10:30 - Physical Exam Vitals and I&O: Vital Signs Temp 99.0 F 12/12/16 04:00 Pulse 66 12/12/16 04:00 Resp 18 12/12/16 04:00 BP 130/74 12/12/16 04:00 Pulse Ox 96 12/12/16 04:00 Intake & Output 12/11/16 12/12/16 12/12/16 18:59 06:59 18:59 Intake Total 300 300 Output Total 600 850 Balance -300 -550 Intake: Intake, IV Amount 300 300 Nafcillin 2 gm In Sodium 300 300 Chloride 0.9% 100 ml @ 100 mls/hr IV Q4HR [facility] Rx #:[id number] Output: Urine 600 850 Other: # Voids 4 Active Medications: Current Medications Acetaminophen (Tylenol) 650 mg PO Q6H PRN PRN Reason: Fever > 101 Stop: 02/04/17 19:52 Last Admin: 12/09/16 21:26 Dose: 650 mg Aspirin (Aspirin) 325 mg PO DAILY [facility] Stop: 02/06/17 08:59 Last Admin: 12/12/16 08:05 Dose: 325 mg Diclofenac Sodium (Voltaren) 75 mg PO BID [facility] Stop: 02/06/17 08:59 Last Admin: 04/24/17 08:05 Dose: 75 mg Hydromorphone HCl (Dilaudid) 1 mg IVP Q6H PRN PRN Reason: PAIN Stop: 02/04/17 07:39 Last Admin: 12/12/16 08:06 Dose: 1 mg Nafcillin Sodium 2 gm/ Sodium (Chloride) 100 mls @ 100 mls/hr IV Q4HR [facility] Stop: 02/08/17 15:59 Last Admin: 12/12/16 08:05 Dose: 100 mls/hr General: no acute distress, cachectic HEENT: atraumatic, normocephalic, PERRLA, EOMI, moist mucous membrane Neck: supple, no thyromegaly Cardiovascular: S1S2, regular Lungs: clear to auscultation bilaterally, clear to percussion Abdomen: soft, no tender, no distended Extremities: no cyanosis, no clubbing, no edema Neurological: awake, alert, oriented Skin: other (right upper chest wall wound.) Infectious Disease Assmt/Plan - Assessment Assessment: 1. Staph sepsis. MSSA , high grade bacteremia. 2/2 osteomyelitis. suspect endocarditis. 2. Upper chest wall wound. cellulitis. 3. 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 Repeat blood culture. and repeat Echo as quality of first echo was poor. Change antibiotic to nafcillin. Patient will need 6 weeks of IV antibiotics and PICC line after clearance of bacteremia. Cardiology consult.
--- NOTE | 2016-12-12 18:14 | Cardiology ---
12/10/2016 ECHOCARDIOGRAM REPORT The patient of Dr. Cedillo. M-MODE ECHOCARDIOGRAM: Mitral valve, anterior leaflet of mitral valve shows normal excursion, EF velocity. Posterior leaflet of the mitral valve shows normal excursion. Left ventricle posterior wall shows increased thickness, normal excursion. Interventricular septum shows increased thickness, normal excursion, hypertrophy of the left ventricle, ejection fraction 63%. Left atrium normal. Aortic root shows normal dimension, normal excursion of aortic leaflets. CONCLUSION: Hypertrophy of the left ventricle, ejection fraction 63%. 2D ECHO: Long axis view showed normal sized left ventricle with hypertrophy of the left ventricle. Left atrium normal. Aortic root shows normal dimension, normal excursion of aortic leaflets. Short axis view of mitral valve normal. Short axis view of aortic valve normal. Apical four chamber view showed normal sized left ventricle with hypertrophy of the left ventricle. Left atrium normal. Right ventricular cavity, right atrium normal, no pericardial effusion. CONCLUSION: Hypertrophy of the left ventricle, ejection fraction 63%. Doppler study showed trace mitral regurgitation, trace triscuspid regurgitation, left ventricular systolic pressure 21 mmHg. Prominent A wave consistent with poor compliance of left ventricle. No endocarditis. JOB# [id number]
[2016-12-13] MEDS: Nafcillin 2 GM in Sodium Chloride 0.9% 100 ML IV SCH ×6 (00:18→20:35)
--- NOTE | 2016-12-13 02:13 | Consultation ---
DATE OF CONSULTATION: 12/11/2016 HISTORY OF PRESENT ILLNESS: This 46-year-old male was seen and examined at the courtesy of Dr. Cedillo. The patient was admitted here and transferred here from [facility] where he went for an abscess that was draining around the right sternoclavicular area. Prior to that he was seen even at [facility] for the same thing. He was given an antibiotic treatment for the same problem. In the past the patient has had history of septic arthritis and chest wall cellulitis. The reason the cardiac consultation was called to rule out any endocarditis. The patient's blood cultures have been developing gram positive cocci as well as the patient has leukocytosis. The patient had undergone incision and drainage of the abscess. Even the CT scan was done that has shown the presence of absent sternoclavicular joint. PAST MEDICAL HISTORY: As mentioned above. ALLERGIES: No allergies. SOCIAL HISTORY: There is no history of smoking or drinking. No history of drug use. REVIEW OF SYSTEMS: No history of any chest pains. No pressure or tightness, no history of palpitations, no history of dizziness, no history of syncope, no history of seizures, no history of cough, no history of fever. No history of hemoptysis, no history of abdominal pain. No history of nausea, vomiting. No history of hematemesis. No history of melena, no history of bleeding per rectum. No history of hematuria. PHYSICAL EXAMINATION: VITAL SIGNS: Heart rate was 71, blood pressure 123/68, temperature 99, respirations 18 and O2 saturation 97%. SKIN: Normal. HEAD: Normocephalic. EYES: Conjunctivae were pink. There is no icterus in the eyes: Pupils reactive to light. NECK: There was no increased jugular vein distention. No thyromegaly and no lymphadenopathy. Carotids equal both sides. CHEST: Bilaterally symmetrical, moved well with respirations. Respiratory movements equal both sides. Trachea is central. There is note to percussion. Breath sound normal. CARDIOVASCULAR SYSTEM: PMI not well localized. There is no pulsation, no thrill and no parasternal heave. S1 normal. S2 physiologic. There were no S3 and no rub. ABDOMEN: Soft. No tenderness, no rigidity, no guarding and no organomegaly. Bowel sounds normal. CENTRAL NERVOUS SYSTEM: Grossly unremarkable. There was no edema, no calf tenderness. Peripheral pulses okay. IMPRESSION: Abscess in the right sternoclavicular joint, cellulitis, bacteremia, gram-positive cocci, rule out endocarditis ____ I do not see an EKG in the chart. We will get an EKG done. We will also have to review echocardiogram apparently which has been done to evaluate for any vegetations. Transthoracic echocardiogram does not reveal anything and may be transesophageal echocardiogram may be in order. In the meantime to continue present management and Dr. Nellie Renteria will be following him from the morning. JOB# [id number]
[2016-12-13] MEDS: HYDROmorphone 1 mg/mL 1mL Syr IVP PRN ×3 (04:21→18:05)
[2016-12-13 05:15] LABS: % MONOCYTES 7.1 % (2.0-10.0); % NEUTROPHILS 78.8 % (40.0-80.0); HEMOGLOBIN 10.3 gm/dL (13.2-17.3); MEAN CORPUSCULAR HEMOGLOBIN 27.3 pg (26.0-30.0)
[2016-12-13 05:26] LABS: % EOSINOPHILS 1.4 % (0.0-5.0); % LYMPHOCYTES 12.7 % (20.0-50.0); HEMATOCRIT 31.1 % (39.0-49.0); MEAN CELL VOLUME 82.2 fl (80-99); MEAN CORPUSCULAR HGB CONC 33.3 pg (28.0-36.0); MEAN PLATELET VOLUME 7.1 fl; NEUTROPHILE ABSOLUTE 9.5 Th/cmm (1.8-8.0); PLATELET COUNT 733 Th/cmm (150-400); RED BLOOD COUNT 3.78 Mil/cmm (4.30-5.70); RED CELL DISTRIBUTION WIDTH 12.7 % (11.5-20.0)
[2016-12-13 05:29] LABS: WHITE BLOOD COUNT 12.1 Th/cmm (4.8-10.8)
[2016-12-13 05:41] LABS: ALB/GLOB RATIO 0.6 (1.0-1.8); ALKALINE PHOSPHATASE 64 U/L (34-104); ANION GAP 8.5 (7.0-16.0); BILIRUBIN,TOTAL 0.6 mg/dL (0.3-1.0); BUN - UREA NITROGEN 14 mg/dL (7-25); BUN/CREATININE RATIO 23.3; CALCIUM SERUM 8.9 mg/dL (8.6-10.3); CARBON DIOXIDE 29.2 mEq/L (21.0-31.0); CHLORIDE 97 mEq/L (98-107); CREATININE - SERUM 0.6 mg/dL (0.7-1.3); GLUCOSE 106 mg/dL (70-105); POTASSIUM SERUM 3.7 mEq/L (3.5-5.1); SGOT 11 U/L (13-39); SGPT/ALT 17 U/L (7-52); SODIUM SERUM 131 mEq/L (136-145)
[2016-12-13] MEDS: Diclofenac 75 mg Tab PO SCH ×2 (08:25→16:11)
--- NOTE | 2016-12-13 12:16 | Infectious Disease Prog Note ---
Infectious Disease Subjective - Review of Systems Service Date: 12/13/16 Subjective: There is no new change, there is no fever. blood culture grew MSSA. Infectious Disease Objective - Results Result Diagrams: 12/13/16 04:41 12/13/16 04:41 Recent Labs: Laboratory Last Values WBC 12.1 Th/cmm (4.8-10.8) H D 12/13/16 04:41 RBC 3.78 Mil/cmm (4.30-5.70) L 12/13/16 04:41 Hgb 10.3 gm/dL (13.2-17.3) L 12/13/16 04:41 Hct 31.1 % (39.0-49.0) L 12/13/16 04:41 MCV 82.2 fl (80-99) 12/13/16 04:41 MCH 27.3 pg (26.0-30.0) 12/13/16 04:41 MCHC Differential 33.3 pg (28.0-36.0) 12/13/16 04:41 RDW 12.7 % (11.5-20.0) 12/13/16 04:41 Plt Count 733 Th/cmm (150-400) H 12/13/16 04:41 MPV 7.1 fl 12/13/16 04:41 Neutrophils % 78.8 % (40.0-80.0) 12/13/16 04:41 Band Neutrophils % 2 % (0-10) 12/08/16 05:45 Lymphocytes % 12.7 % (20.0-50.0) L 12/13/16 04:41 Monocytes % 7.1 % (2.0-10.0) 12/13/16 04:41 Eosinophils % 1.4 % (0.0-5.0) 12/13/16 04:41 Basophils % 0.0 % (0.0-2.0) 12/13/16 04:41 Neutrophils (Manual) 79 % (40-80) 12/08/16 05:45 Lymphocytes 9 % (20-50) L 12/08/16 05:45 Monocytes 10 % (2-10) 12/08/16 05:45 Atypical Lymphocytes 4 % 12/06/16 08:06 Platelet Estimate INCREASED PLATELETS (NORMAL) 12/08/16 05:45 Platelet Morphology GIANT PLATELETS SEEN (NORMAL) 12/08/16 05:45 ESR 75 mm/hr (0-20) H 12/09/16 05:55 PT 12.0 SECONDS (9.5-11.5) H 12/08/16 05:45 INR 1.14 (0.5-1.4) 12/08/16 05:45 Sodium 131 mEq/L (136-145) L 12/13/16 04:41 Potassium 3.7 mEq/L (3.5-5.1) 12/13/16 04:41 Chloride 97 mEq/L (98-107) L 12/13/16 04:41 Carbon Dioxide 29.2 mEq/L (21.0-31.0) 12/13/16 04:41 Anion Gap 8.5 (7.0-16.0) 12/13/16 04:41 BUN 14 mg/dL (7-25) 12/13/16 04:41 Creatinine 0.6 mg/dL (0.7-1.3) L 12/13/16 04:41 Est GFR ( Amer) > 60.0 ml/min (>90) 12/13/16 04:41 Est GFR (Non-Af Amer) > 60.0 ml/min 12/13/16 04:41 BUN/Creatinine Ratio 23.3 12/13/16 04:41 Glucose 106 mg/dL (70-105) H 12/13/16 04:41 Calcium 8.9 mg/dL (8.6-10.3) 12/13/16 04:41 Total Bilirubin 0.6 mg/dL (0.3-1.0) 12/13/16 04:41 AST 11 U/L (13-39) L 12/13/16 04:41 ALT 17 U/L (7-52) 12/13/16 04:41 Alkaline Phosphatase 64 U/L (34-104) 12/13/16 04:41 C-Reactive Protein 15.7 mg/dL (0.0-0.9) H 12/09/16 05:55 Total Protein 7.3 gm/dL (6.0-8.3) 12/13/16 04:41 Albumin 2.7 gm/dL (4.2-5.5) L 12/13/16 04:41 Globulin 4.6 gm/dL 12/13/16 04:41 Albumin/Globulin Ratio 0.6 (1.0-1.8) L 12/13/16 04:41 Vancomycin Trough 26.1 ug/mL (10-20) H 12/09/16 08:05 Urine Opiates Screen POSITIVE (NEGATIVE) H 12/06/16 10:30 Urine Methadone Screen NEGATIVE (NEGATIVE) 12/06/16 10:30 Ur Barbiturates Screen NEGATIVE (NEGATIVE) 12/06/16 10:30 Ur Tricyclics Screen NEGATIVE (NEGATIVE) 12/06/16 10:30 Ur Phencyclidine Scrn NEGATIVE (NEGATIVE) 12/06/16 10:30 Amphetamines Screen POSITIVE (NEGATIVE) H 12/06/16 10:30 U Methamphetamines Scrn NEGATIVE (NEGATIVE) 12/06/16 10:30 U Benzodiazepines Scrn NEGATIVE (NEGATIVE) 12/06/16 10:30 U Cocaine Metab Screen NEGATIVE (NEGATIVE) 12/06/16 10:30 U Cannabinoids Screen NEGATIVE (NEGATIVE) 12/06/16 10:30 - Physical Exam Vitals and I&O: Vital Signs Temp 98.5 F 12/13/16 08:00 Pulse 76 12/13/16 08:00 Resp 19 12/13/16 08:00 BP 134/70 12/13/16 08:00 Pulse Ox 93 12/13/16 08:00 Intake & Output 12/12/16 12/13/16 12/13/16 18:59 06:59 18:59 Intake Total 300 300 100 Balance 300 300 100 Intake: Intake, IV Amount 300 300 100 Nafcillin 2 gm In Sodium 300 300 100 Chloride 0.9% 100 ml @ 100 mls/hr IV Q4HR [facility] Rx #:[id number] Active Medications: Current Medications Acetaminophen (Tylenol) 650 mg PO Q6H PRN PRN Reason: Fever > 101 Stop: 02/04/17 19:52 Last Admin: 12/13/16 08:25 Dose: 650 mg Aspirin (Aspirin) 325 mg PO DAILY [facility] Stop: 02/06/17 08:59 Last Admin: 12/13/16 08:31 Dose: 325 mg Diclofenac Sodium (Voltaren) 75 mg PO BID [facility] Stop: 02/06/17 08:59 Last Admin: 12/13/16 08:25 Dose: 75 mg Hydromorphone HCl (Dilaudid) 1 mg IVP Q6H PRN PRN Reason: PAIN Stop: 02/04/17 07:39 Last Admin: 12/13/16 11:42 Dose: 1 mg Nafcillin Sodium 2 gm/ Sodium (Chloride) 100 mls @ 100 mls/hr IV Q4HR [facility] Stop: 02/08/17 15:59 Last Admin: 12/13/16 11:30 Dose: 100 mls/hr General: no acute distress, cachectic HEENT: atraumatic, normocephalic, PERRLA Neck: supple, no thyromegaly, no lymphadenopathy Cardiovascular: S1S2, regular Lungs: clear to auscultation bilaterally, clear to percussion Abdomen: soft, no tender, no distended Extremities: no cyanosis, no clubbing, no edema Neurological: awake, alert, oriented Skin: other (wound on the right sternoclavicular joint.) Infectious Disease Assmt/Plan - Assessment Assessment: 1. Staph sepsis. MSSA , high grade bacteremia. 2/2 osteomyelitis. 2. Upper chest wall wound. cellulitis. 3. 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 Change antibiotic to nafcillin. Patient will need 6 weeks of IV antibiotics and PICC line tomorrow. Cardiology consult. Will change nafcillin to ancef 2 gm IV q8
--- NOTE | 2016-12-13 12:22 | General Progress Note ---
Subjective - Review of Systems Service Date: 12/13/16 Subjective: I am better. Objective - Results Result Diagrams: 12/13/16 04:41 12/13/16 04:41 Recent Labs: Laboratory Last Values WBC 12.1 Th/cmm (4.8-10.8) H D 12/13/16 04:41 RBC 3.78 Mil/cmm (4.30-5.70) L 12/13/16 04:41 Hgb 10.3 gm/dL (13.2-17.3) L 12/13/16 04:41 Hct 31.1 % (39.0-49.0) L 12/13/16 04:41 MCV 82.2 fl (80-99) 12/13/16 04:41 MCH 27.3 pg (26.0-30.0) 12/13/16 04:41 MCHC Differential 33.3 pg (28.0-36.0) 12/13/16 04:41 RDW 12.7 % (11.5-20.0) 12/13/16 04:41 Plt Count 733 Th/cmm (150-400) H 12/13/16 04:41 MPV 7.1 fl 12/13/16 04:41 Neutrophils % 78.8 % (40.0-80.0) 12/13/16 04:41 Band Neutrophils % 2 % (0-10) 12/08/16 05:45 Lymphocytes % 12.7 % (20.0-50.0) L 12/13/16 04:41 Monocytes % 7.1 % (2.0-10.0) 12/13/16 04:41 Eosinophils % 1.4 % (0.0-5.0) 12/13/16 04:41 Basophils % 0.0 % (0.0-2.0) 12/13/16 04:41 Neutrophils (Manual) 79 % (40-80) 12/08/16 05:45 Lymphocytes 9 % (20-50) L 12/08/16 05:45 Monocytes 10 % (2-10) 12/08/16 05:45 Atypical Lymphocytes 4 % 12/06/16 08:06 Platelet Estimate INCREASED PLATELETS (NORMAL) 12/08/16 05:45 Platelet Morphology GIANT PLATELETS SEEN (NORMAL) 12/08/16 05:45 ESR 75 mm/hr (0-20) H 12/09/16 05:55 PT 12.0 SECONDS (9.5-11.5) H 12/08/16 05:45 INR 1.14 (0.5-1.4) 12/08/16 05:45 Sodium 131 mEq/L (136-145) L 12/13/16 04:41 Potassium 3.7 mEq/L (3.5-5.1) 12/13/16 04:41 Chloride 97 mEq/L (98-107) L 12/13/16 04:41 Carbon Dioxide 29.2 mEq/L (21.0-31.0) 12/13/16 04:41 Anion Gap 8.5 (7.0-16.0) 12/13/16 04:41 BUN 14 mg/dL (7-25) 12/13/16 04:41 Creatinine 0.6 mg/dL (0.7-1.3) L 12/13/16 04:41 Est GFR ( Amer) > 60.0 ml/min (>90) 12/13/16 04:41 Est GFR (Non-Af Amer) > 60.0 ml/min 12/13/16 04:41 BUN/Creatinine Ratio 23.3 12/13/16 04:41 Glucose 106 mg/dL (70-105) H 12/13/16 04:41 Calcium 8.9 mg/dL (8.6-10.3) 12/13/16 04:41 Total Bilirubin 0.6 mg/dL (0.3-1.0) 12/13/16 04:41 AST 11 U/L (13-39) L 12/13/16 04:41 ALT 17 U/L (7-52) 12/13/16 04:41 Alkaline Phosphatase 64 U/L (34-104) 12/13/16 04:41 C-Reactive Protein 15.7 mg/dL (0.0-0.9) H 12/09/16 05:55 Total Protein 7.3 gm/dL (6.0-8.3) 12/13/16 04:41 Albumin 2.7 gm/dL (4.2-5.5) L 12/13/16 04:41 Globulin 4.6 gm/dL 12/13/16 04:41 Albumin/Globulin Ratio 0.6 (1.0-1.8) L 12/13/16 04:41 Vancomycin Trough 26.1 ug/mL (10-20) H 12/09/16 08:05 Urine Opiates Screen POSITIVE (NEGATIVE) H 12/06/16 10:30 Urine Methadone Screen NEGATIVE (NEGATIVE) 12/06/16 10:30 Ur Barbiturates Screen NEGATIVE (NEGATIVE) 12/06/16 10:30 Ur Tricyclics Screen NEGATIVE (NEGATIVE) 12/06/16 10:30 Ur Phencyclidine Scrn NEGATIVE (NEGATIVE) 12/06/16 10:30 Amphetamines Screen POSITIVE (NEGATIVE) H 12/06/16 10:30 U Methamphetamines Scrn NEGATIVE (NEGATIVE) 12/06/16 10:30 U Benzodiazepines Scrn NEGATIVE (NEGATIVE) 12/06/16 10:30 U Cocaine Metab Screen NEGATIVE (NEGATIVE) 12/06/16 10:30 U Cannabinoids Screen NEGATIVE (NEGATIVE) 12/06/16 10:30 - Physical Exam Vitals and I&O: Vital Signs Temp 98.5 F 12/13/16 08:00 Pulse 76 12/13/16 08:00 Resp 19 12/13/16 08:00 BP 134/70 12/13/16 08:00 Pulse Ox 93 12/13/16 08:00 Intake & Output 12/12/16 12/13/16 12/13/16 18:59 06:59 18:59 Intake Total 300 300 100 Balance 300 300 100 Intake: Intake, IV Amount 300 300 100 Nafcillin 2 gm In Sodium 300 300 100 Chloride 0.9% 100 ml @ 100 mls/hr IV Q4HR [facility] Rx #:[id number] Active Medications: Current Medications Acetaminophen (Tylenol) 650 mg PO Q6H PRN PRN Reason: Fever > 101 Stop: 02/04/17 19:52 Last Admin: 12/13/16 08:25 Dose: 650 mg Aspirin (Aspirin) 325 mg PO DAILY [facility] Stop: 02/06/17 08:59 Last Admin: 12/13/16 08:31 Dose: 325 mg Diclofenac Sodium (Voltaren) 75 mg PO BID [facility] Stop: 02/06/17 08:59 Last Admin: 12/13/16 08:25 Dose: 75 mg Hydromorphone HCl (Dilaudid) 1 mg IVP Q6H PRN PRN Reason: PAIN Stop: 02/04/17 07:39 Last Admin: 12/13/16 11:42 Dose: 1 mg Nafcillin Sodium 2 gm/ Sodium (Chloride) 100 mls @ 100 mls/hr IV Q4HR [facility] Stop: 02/08/17 15:59 Last Admin: 12/13/16 11:30 Dose: 100 mls/hr General: Alert, Oriented x3, Cooperative, No acute distress HEENT: Atraumatic Neck: Supple Cardiovascular: Regular rate Lungs: Clear to auscultation Abdomen: Bowel sounds, Soft Extremities: Other (No edema) Neurological: Normal gait Skin: Other (abcess improving) Psych/Mental Status: Mental status NL Assessment/Plan - Assessment Assessment: Patient is awake, calm in no distress. Today WBC improved. Agree with MRI. Dx: Sepsis secondary to cellulites and abscess, Osteomyelitis. - Plan Plan: Patient in [facility], Patient was not discharge due to blood culture positive. Pick line will be placed.
[2016-12-14] MEDS: Nafcillin 2 GM in Sodium Chloride 0.9% 100 ML IV SCH ×5 (00:05→16:20)
[2016-12-14 05:17] LABS: % BASOPHILS 0.1 % (0.0-2.0); % EOSINOPHILS 2.2 % (0.0-5.0); % LYMPHOCYTES 19.6 % (20.0-50.0); % MONOCYTES 9.3 % (2.0-10.0); % NEUTROPHILS 68.8 % (40.0-80.0); HEMATOCRIT 29.7 % (39.0-49.0); HEMOGLOBIN 9.8 gm/dL (13.2-17.3); MEAN CELL VOLUME 81.5 fl (80-99); MEAN CORPUSCULAR HEMOGLOBIN 26.9 pg (26.0-30.0); MEAN PLATELET VOLUME 6.6 fl; NEUTROPHILE ABSOLUTE 5.8 Th/cmm (1.8-8.0); RED BLOOD COUNT 3.65 Mil/cmm (4.30-5.70); RED CELL DISTRIBUTION WIDTH 12.3 % (11.5-20.0)
[2016-12-14 05:23] LABS: PLATELET COUNT 768 Th/cmm (150-400); WHITE BLOOD COUNT 8.4 Th/cmm (4.8-10.8)
[2016-12-14 05:51] LABS: ALB/GLOB RATIO 0.6 (1.0-1.8); ALKALINE PHOSPHATASE 57 U/L (34-104); ANION GAP 8.9 (7.0-16.0); BILIRUBIN,TOTAL 0.5 mg/dL (0.3-1.0); BUN - UREA NITROGEN 20 mg/dL (7-25); CALCIUM SERUM 8.7 mg/dL (8.6-10.3); CARBON DIOXIDE 29.8 mEq/L (21.0-31.0); CHLORIDE 100 mEq/L (98-107); CREATININE - SERUM 0.8 mg/dL (0.7-1.3); GLUCOSE 103 mg/dL (70-105); POTASSIUM SERUM 3.7 mEq/L (3.5-5.1); SGOT 11 U/L (13-39); SGPT/ALT 15 U/L (7-52); SODIUM SERUM 135 mEq/L (136-145)
[2016-12-14] MEDS: Diclofenac 75 mg Tab PO SCH ×2 (08:21→16:20)
--- NOTE | 2016-12-14 08:52 | General Progress Note ---
Subjective - Review of Systems Service Date: 12/14/16 Subjective: I am fine Objective - Results Result Diagrams: 12/14/16 05:08 12/14/16 05:08 Recent Labs: Laboratory Last Values WBC 8.4 Th/cmm (4.8-10.8) D 12/14/16 05:08 RBC 3.65 Mil/cmm (4.30-5.70) L 12/14/16 05:08 Hgb 9.8 gm/dL (13.2-17.3) L 12/14/16 05:08 Hct 29.7 % (39.0-49.0) L 12/14/16 05:08 MCV 81.5 fl (80-99) 12/14/16 05:08 MCH 26.9 pg (26.0-30.0) 12/14/16 05:08 MCHC Differential 33.0 pg (28.0-36.0) 12/14/16 05:08 RDW 12.3 % (11.5-20.0) 12/14/16 05:08 Plt Count 768 Th/cmm (150-400) H* 12/14/16 05:08 MPV 6.6 fl 12/14/16 05:08 Neutrophils % 68.8 % (40.0-80.0) 12/14/16 05:08 Band Neutrophils % 2 % (0-10) 12/08/16 05:45 Lymphocytes % 19.6 % (20.0-50.0) L 12/14/16 05:08 Monocytes % 9.3 % (2.0-10.0) 12/14/16 05:08 Eosinophils % 2.2 % (0.0-5.0) 12/14/16 05:08 Basophils % 0.1 % (0.0-2.0) 12/14/16 05:08 Neutrophils (Manual) 79 % (40-80) 12/08/16 05:45 Lymphocytes 9 % (20-50) L 12/08/16 05:45 Monocytes 10 % (2-10) 12/08/16 05:45 Atypical Lymphocytes 4 % 12/06/16 08:06 Platelet Estimate INCREASED PLATELETS (NORMAL) 12/08/16 05:45 Platelet Morphology GIANT PLATELETS SEEN (NORMAL) 12/08/16 05:45 ESR 75 mm/hr (0-20) H 12/09/16 05:55 PT 12.0 SECONDS (9.5-11.5) H 12/08/16 05:45 INR 1.14 (0.5-1.4) 12/08/16 05:45 Sodium 135 mEq/L (136-145) L 12/14/16 05:08 Potassium 3.7 mEq/L (3.5-5.1) 12/14/16 05:08 Chloride 100 mEq/L (98-107) 12/14/16 05:08 Carbon Dioxide 29.8 mEq/L (21.0-31.0) 12/14/16 05:08 Anion Gap 8.9 (7.0-16.0) 12/14/16 05:08 BUN 20 mg/dL (7-25) 12/14/16 05:08 Creatinine 0.8 mg/dL (0.7-1.3) 12/14/16 05:08 Est GFR ( Amer) > 60.0 ml/min (>90) 12/14/16 05:08 Est GFR (Non-Af Amer) > 60.0 ml/min 12/14/16 05:08 BUN/Creatinine Ratio 25.0 12/14/16 05:08 Glucose 103 mg/dL (70-105) 12/14/16 05:08 Calcium 8.7 mg/dL (8.6-10.3) 12/14/16 05:08 Total Bilirubin 0.5 mg/dL (0.3-1.0) 12/14/16 05:08 AST 11 U/L (13-39) L 12/14/16 05:08 ALT 15 U/L (7-52) 12/14/16 05:08 Alkaline Phosphatase 57 U/L (34-104) 12/14/16 05:08 C-Reactive Protein 15.7 mg/dL (0.0-0.9) H 12/09/16 05:55 Total Protein 6.8 gm/dL (6.0-8.3) 12/14/16 05:08 Albumin 2.6 gm/dL (4.2-5.5) L 12/14/16 05:08 Globulin 4.2 gm/dL 12/14/16 05:08 Albumin/Globulin Ratio 0.6 (1.0-1.8) L 12/14/16 05:08 Vancomycin Trough 26.1 ug/mL (10-20) H 12/09/16 08:05 Urine Opiates Screen POSITIVE (NEGATIVE) H 12/06/16 10:30 Urine Methadone Screen NEGATIVE (NEGATIVE) 12/06/16 10:30 Ur Barbiturates Screen NEGATIVE (NEGATIVE) 12/06/16 10:30 Ur Tricyclics Screen NEGATIVE (NEGATIVE) 12/06/16 10:30 Ur Phencyclidine Scrn NEGATIVE (NEGATIVE) 12/06/16 10:30 Amphetamines Screen POSITIVE (NEGATIVE) H 12/06/16 10:30 U Methamphetamines Scrn NEGATIVE (NEGATIVE) 12/06/16 10:30 U Benzodiazepines Scrn NEGATIVE (NEGATIVE) 12/06/16 10:30 U Cocaine Metab Screen NEGATIVE (NEGATIVE) 12/06/16 10:30 U Cannabinoids Screen NEGATIVE (NEGATIVE) 12/06/16 10:30 - Physical Exam Vitals and I&O: Vital Signs Temp 98.4 F 12/14/16 04:00 Pulse 73 12/14/16 04:00 Resp 18 12/14/16 04:00 BP 129/76 12/14/16 04:00 Pulse Ox 98 12/14/16 04:00 Intake & Output 12/13/16 12/14/16 12/14/16 18:59 06:59 18:59 Intake Total 300 300 Balance 300 300 Intake: Intake, IV Amount 300 300 Nafcillin 2 gm In Sodium 300 300 Chloride 0.9% 100 ml @ 100 mls/hr IV Q4HR [facility] Rx #:[id number] Active Medications: Current Medications Acetaminophen (Tylenol) 650 mg PO Q6H PRN PRN Reason: Fever > 101 Stop: 02/04/17 19:52 Last Admin: 12/14/16 00:35 Dose: 650 mg Aspirin (Aspirin) 325 mg PO DAILY [facility] Stop: 02/06/17 08:59 Last Admin: 12/14/16 08:19 Dose: 325 mg Diclofenac Sodium (Voltaren) 75 mg PO BID [facility] Stop: 02/06/17 08:59 Last Admin: 12/14/16 08:21 Dose: 75 mg Nafcillin Sodium 2 gm/ Sodium (Chloride) 100 mls @ 100 mls/hr IV Q4HR [facility] Stop: 02/08/17 15:59 Last Admin: 12/14/16 07:27 Dose: 100 mls/hr General: Alert, Oriented x3, Cooperative, No acute distress HEENT: Atraumatic Neck: Supple Cardiovascular: Regular rate Lungs: Clear to auscultation Abdomen: Bowel sounds, Soft Extremities: Other (No edema) Neurological: Normal gait Skin: Other (Wound abcess healing) Psych/Mental Status: Mental status NL Assessment/Plan - Assessment Assessment: Patient is awake, calm in no distress. Today WBC is normal. Dx: Sepsis secondary to cellulites and abscess, Osteomyelitis. - Plan Plan: Patient in [facility], Pick david will be placed and patient will be discharge home with IV antibiotic. Nutritional Asmnt/Malnutr-PDOC - Dietary Evaluation Malnutrition Findings (Please click <Entered> for more info): Nutritional Asmnt/Malnutrition Start: 12/13/16 16: 24 Text: Status: Complete Freq: Document 12/13/16 16:26 GSUN (Rec: 12/13/16 16:35 [email or web address]) Nutritional Asmnt/Malnutrition Patient General Information Nutritional Screening Diagnosis Diagnosis Chest cellulitis and abscess Pertinent Medical Hx/Surgical Hx Septic arthritis, chest wall cellulitis Subjective Information 46 year old male from home. Pt was pleasant, sitting upright in a chair next to bed. Pt denied any nutritional concerns and GI problems at this time. Pt is unsure of UBW , suspected around 160lb. Pt stated good appetite. Avg PO intake 100% of meals since adm , meeting nutritional needs. Current Diet Order/ Nutrition Support Regular Pertinent Medications Reviewed. Pertinent Labs Reviewed. Nutritional Hx/Data Height 1.73 m Height (Calculated Centimeters) 172.7 Current Weight (lbs) 75.75 kg Weight (Calculated Kilograms) 75.7 Weight (Calculated Grams) 24429.9 [place] Body Weight 154 Recent Weight Change No Weight Status Approriate GI Symptoms Skin Integrity/Comment: Dave 18. Skin intact. Current %PO Good (75-100%) Estimated Nutritional Goals BEE in Kcals: Using Current wt Calories/Kcals/Kg CBW 167lb/75.7kg Kcals Calculated 1893-2271kcal (25-30kcal/kg) Protein: Using Current wt Protein Calculated 61g (0.8g/kg) Fluid: ml 1893-2271ml (1ml/kcal) Nutritional Problem 1. Problem Problem No nutritional problem at this time. Intervention/Recommendation Comments 1. Continue with regular diet. Avg Po itnake is adequate. Expected Outcomes/Goals Expected Outcomes/Goals 1. PO intake continue to meet at least 75% of estimated nutritional needs.
[2016-12-14 10:34] LABS: INR 1.18 (0.5-1.4); PROTHROMBIN TIME (TEST) 12.4 SECONDS (9.5-11.5)
--- NOTE | 2016-12-15 10:59 | Diagnostic Imaging Report ---
Portable chest x-ray HISTORY: Shortness of breath, vascular catheter placement The heart size is normal. No focal pulmonary processes. A left-sided vascular catheter tip is in the region of the superior vena cava. IMPRESSION: 1. No acute pulmonary abnormalities 2. Vascular catheter tip in the region of the superior vena cava
--- NOTE | 2016-12-22 00:45 | Discharge Summary ---
DATE OF DISCHARGE: 12/14/2016 CHIEF COMPLAINT: Thoracic abscess. HISTORY OF PRESENT ILLNESS: This is a case of 46-year-old male who went to Emergency Room [facility] secondary to chest pain and neck. Diagnosis of thoracic abscess was done and abscess was draining. The patient was transferred to [facility] to continue treatment. HOSPITAL COURSE AND TREATMENT: This patient was admitted in the medical surgical floor. He was started on IV normal saline, vancomycin and Zosyn. He received Dilaudid for pain control. Consult with ID and Surgery were requested and recommendations were followed with this treatment and after discussed the case with ID and Surgeon and after 8 days in the hospital, it was considered that the patient received the maximum benefit of hospitalization and he could be sent home to continue treatment with primary care physician. At the moment of the discharge, the patient was awake, alert, in no acute distress with no pain. [employer]GER IN THIS CASE: Infectious Disease, Dr. Juan Renteria and Surgery, Dr. Nair. DISPOSITION: The patient is sent home with home health to continue IV antibiotic. IMPRESSION: 1. Sepsis. 2. Thoracic abscess. JOB# [id number]
== END 2016-12-14 18:02 | disposition home health service (06) | DRG 720 ==
LOC: MSI 06:20
PROVIDERS: ADMIT General Practice; ATTEND General Practice
PROC: 02HV33Z Insertion of Infusion Device into Superior Vena Cava, Percutaneous Approach (ICD-10-PCS; principal; 2016-12-10)
DX: A41.2 Sepsis due to unspecified staphylococcus (principal); J18.9 Pneumonia, unspecified organism; M00.9 Pyogenic arthritis, unspecified; E44.1 Mild protein-calorie malnutrition; M00.811 Arthritis due to other bacteria, right shoulder; L03.319 Cellulitis of trunk, unspecified; M86.9 Osteomyelitis, unspecified; L02.213 Cutaneous abscess of chest wall; Z68.25 Body mass index [BMI] 25.0-25.9, adult
CPT/HCPCS: 36415-UA; 71010-TC; 73218-TC-RT; 78315-TC; 80053-TC; 80202-TC; 80307; 85007-TC; 85025-TC; 85027-TC; 85610-TC; 85652-TC; 85730-TC; 86141-TC; 93005; A9503; C1751; J1170; J2543; J3370; J3490; J7030; J7040; Z7610

== ENCOUNTER 2017-01-19 14:03 | Emergency (ER) | payer MEDICAID, OTHER ==
--- NOTE | 2017-01-19 15:10 | ED Physician Chart ---
Chief Complaint/HPI - Patient Information Date Seen:: 01/19/17 Time Seen:: 14:50 Chief Complaint:: skin redness, redness and warmth History of Present Illness:: After receiving home antibiotics today through his PICC line patient developed redness, warmth and itching of his skin. He states he feels warm and has shortness of breath. Patient was hospitalized here for 11 days for apparent osteomyelitis of the medial aspect of his right clavicle. He was told he got the osteomyelitis following a laceration on his palm apparently with subsequent bacteremia. He has been on home IV antibiotics for the last 34 days and he has 8 days remaining. Allergies:: Allergies Allergy/AdvReac Type Severity Reaction Status Date / Time No Known Allergies Allergy Verified 01/19/17 14:34 Vitals:: Vital Signs - 8 hr 01/19/17 14:05 Temp 99.0 F HR 75 RR 16 BP 139/84 O2 Sat % 100 Historian:: Patient Review:: Nurse's Note Reviewed Review of Systems - Review of Systems General/Constitutional: No fever, No chills Skin: Rash Head: No headache Eyes: No loss of vision ENT: No earache Neck: No neck pain, No swelling Cardio Vascular: No chest pain Pulmonary: SOB GI: No nausea, No vomiting, No diarrhea G/U: No dysuria Musculoskeletal: No bone or joint pain Endocrine: No polyuria Psychiatric: No prior psych history Hematopoietic: No bruising Allergic/Immuno: No urticaria Neurological: No syncope, No focal symptoms Past Medical History - Past Medical History Past Medical History: No significant medical hx Family History: Heart disease, Diabetes Melitus Social History: Non Smoker, No Alcohol Surgical History: other (right clavicle) Psychiatricy History: None Medication: Reviewed Family Medical History - Family Member Father Ethnicity: Living Status: Still Living Hx Family Cancer: No Hx Family Coronary Artery Disease: No Hx Family Congestive Heart Failure: No Hx Family Hypertension: No Hx Family Stroke: No Hx Family Diabetes: No Hx Family Seizures: No Hx Family Dementia: No Hx Family AIDS: No Hx Family HIV: No Hx Family COPD: No Hx Family Hepatitis: No Hx Family Psychiatric Problems: No Hx Family Tuberculosis: No Other Medical History: heart disease Physical Exam - Physical Examination General/Constitutional: Well-developed, well-nourished, Alert, No distress Other Gen/Cons comments:: Patient is in no acute distress. He has easy unlabored respirations. Head: Atraumatic Eyes: Lids, conjuctiva normal, PERRL Other Skin comments:: Mild erythema of torso. 1 cm depression over the medial aspect of the right clavicle and 3 cm of surrounding erythema ENMT: External ears, nose nl, Tonsils nl Other ENMT comments:: Lower medial teeth missing; 4 out of 4 and gum retraction Neck: No nuchal rigidity Respiratory: Clear to Auscultation, No Wheeze/Rhonchi/Rales Cardio Vascular: RRR GI: No tenderness/rebounding/guarding : No CVA tenderness Extremities: Normal digits & nails Neuro/Psych: No focal deficits Misc: No paraspinal tenderness Assessment - Assessment General Assessment: Patient instructed to contact the doctor who is in charge of his antibiotic therapy and tell him about the development of the skin rash. In the meantime he should continue the antibiotics as the allergic reaction appears to be mild. ED Septic Shock - <6hrs of presentation: Vital Signs: Vital Signs - 8 hr 01/19/17 14:05 Temp 99.0 F HR 75 RR 16 BP 139/84 O2 Sat % 100 Reassessment (Disposition) - Reassessment Reassessment Condition:: Unchanged - Diagnosis Diagnosis:: Allergic reaction to an antibiotic - Aftercare/Follow up Instructions Aftercare/Follow-Up Instructions:: Refer to Discharge Instructions Medication Prescribed:: Atarax 25 mg #20 to take 1 4 times a day - Patient Disposition Discharge/Transfer:: Home Condition at Disposition:: Stable, Unchanged
== END 2017-01-19 15:30 | disposition home or self-care (01) ==
LOC: ER 14:03
DX: T36.95XA Adverse effect of unspecified systemic antibiotic, initial encounter (principal); Y92.89 Other specified places as the place of occurrence of the external cause
CPT/HCPCS: A4217; Z7502; Z7610